=== PATIENT | male | born 1985 | race Caucasian/White ===

== ENCOUNTER 2024-02-03 12:35 | Inpatient (IN) ==
[2024-02-03 13:14] LABS: Calcium 8.4 mg/dl (8.6-10.3); Creatinine Clr Calc Pharmacy 180.8 ml/min; Est GFR (African American) 142.9 ml/min; Est GFR (Non-African American) 123.3 ml/min; Potassium 3.6 mmol/L (3.5-5.1)
[2024-02-03] MEDS: SODIUM CHLORIDE 0.9% 1,000 ML IV SCH (13:21)
--- NOTE | 2024-02-03 14:12 | CT Scan Report ---
HEAD CT NONCONTRAST CT DOSE: HISTORY: fall, altered mental status TECHNIQUE: Multiaxial CT images of the head were performed without the use of intravenous contrast. A utomated exposure control was utilized for this study. A dose lowering technique was utilized adheri ng to the principles of ALARA. Comparison: None. Findings: The paranasal sinuses and mastoid air cells are clear. The calvarium and skull base are int act. The ventricles and sulci are within normal limits. There is no mass, hematoma, midline shift, or acute infarct. Right frontal scalp and right facial subcutaneous hemorrhage/contusion. Impression: No acute intracranial abnormality. Right frontal scalp and facial soft tissue injury ACT 112: Negative or not required by law. Electronically signed by: Ruperto Fraga M.D. 02/03/2024 2:10 PM
--- NOTE | 2024-02-03 14:16 | CT Scan Report ---
CERVICAL SPINE CT CT DOSE: 4196.75 mGy.cm HISTORY: fall, altered mental status TECHNIQUE: Multiaxial CT images of the cervical spine were performed and reformatted in the sagittal and coronal plane without the use of contrast. A dose lowering technique was utilized adhering to th e principles of ALARA. COMPARISON: None. FINDINGS: No fractures. No subluxation. Prevertebral soft tissues and the C1-C2 interval are intact. No pneumothorax. Right neck subcutaneous hemorrhage. IMPRESSION: No fractures within the cervical spine. Right neck subcutaneous hemorrhage. ACT 112: Negative or not required by law. Electronically signed by: Ruperto Fraga M.D. 02/03/2024 2:14 PM
--- NOTE | 2024-02-03 14:22 | CT Scan Report ---
MAXILLOFACIAL CT CT DOSE: HISTORY: fall, facial swelling/ecchymosis TECHNIQUE: Multiaxial CT images of the maxillofacial region were performed and reformatted in the cor onal plane without the use of contrast. A dose lowering technique was utilized adhering to the princ iplroberta of DEBOARH. COMPARISON: None. FINDINGS: The visualized cervical spine, skull base, pterygoid plates, nasal bones, lamina papyracea, orbital floors, mandible, and zygomatic arches are intact. No acute fractures identified. The globes and retrobulbar fat are intact. There is right periorbital, facial, and right neck subcutaneous hemo rrhage/contusion. A small amount of hemorrhage partially surrounds the right submandibular gland. Foc al right cheek subcutaneous hematoma on image 310 measuring 3.8 cm. IMPRESSION: 1. No fractures within the maxillofacial region. 2. Right periorbital/facial and right neck subcutaneous hemorrhage/contusion. ACT 112: Negative or not required by law. Electronically signed by: Ruperto Fraga M.D. 02/03/2024 2:19 PM
--- NOTE | 2024-02-03 14:31 | CT Scan Report ---
CT chest diagnostic wo con, CT abd pelvis wo con CT DOSE: HISTORY: fall, etoh TECHNIQUE: Multiaxial CT images of the chest, abdomen, and pelvis were performed without contrast. A dose lowering technique was utilized adhering to the principles of ALARA. COMPARISON: None. FINDINGS: Chest CT: No acute fractures within the chest. No mediastinal hematoma or lymphadenopathy. The heart is normal in size. No pleural or pericardial effusions. Normal caliber thoracic aorta. Mild calcified plaque within the left coronary artery. Normal esophagus. No pneumothorax. The central airways are p atent. No focal lung consolidations. No evidence for pulmonary edema. Abdomen/pelvis CT: No pneumoperitoneum. No pneumatosis. No acute fractures identified. Severe hepatic steatosis. The unenhanced pancreas, spleen, and adrenal glands are unremarkable. There are few punct ate stones within the right kidney. No ureteral stones. No hydronephrosis. Normal caliber abdominal a eldon. No retroperitoneal or pelvic lymphadenopathy. The bladder is unremarkable. No dilated loops of bowel to suggest an obstruction. Mild thickening of the ascending colon with mild pericolonic fat str anding. This suggests a mild nonspecific colitis. Normal appendix. Trace fluid/thickening along the p osterior peritoneal lining/pararenal spaces. IMPRESSION: 1. No acute traumatic process within the chest, abdomen, pelvis. 2. Mild thickening of the ascending colon with pericolonic fat stranding. This is consistent with a n onspecific colitis. Follow-up endoscopy recommended for further evaluation. 3. Severe hepatic steatosis. 4. Right-sided nephrolithiasis. 5. Trace fluid/thickening within the bilateral anterior perirenal spaces. This nonspecific but could be chronic. Follow-up abdomen and pelvis CT in 3-6 months recommended to ensure stability/resolution. ACT 112: Negative or not required by law. Electronically signed by: Ruperto Fraga M.D. 02/03/2024 2:29 PM
[2024-02-03 14:34] LABS: Basophils # (auto) 0.06 K/uL (0.00-0.20); Basophils % (auto) 0.4 %; Eosinophils # (auto) 0.04 K/uL (0.00-0.50); Eosinophils % (auto) 0.3 %; Hematocrit (blood only) 39.6 % (42.0-52.0); Hemoglobin 13.6 g/dl (14.0-18.0); Immature Granulocytes # (auto) 0.27 K/uL (0.01-0.20); Immature Granulocytes % (auto) 1.7 %; Lymphocytes # (auto) 2.26 K/uL (1.20-3.40); Lymphocytes % (auto) 14.5 %; Mean Corpuscular Hemoglobin 31.1 pg (25.0-34.0); Mean Corpuscular Hgb Conc 34.3 g/dL (32.0-36.0); Mean Corpuscular Volume 90.4 fL (80.0-100.0); Mean Platelet Volume 10.7 fL (9.4-12.4); Monocytes # (auto) 1.28 K/uL (0.11-0.59); Monocytes % (auto) 8.2 %; Neutrophils # (auto) 11.71 K/uL (1.40-6.50); Neutrophils % (auto) 74.9 %; Nucleated RBC # (auto) 0.02 K/uL (0.00-0.12); Nucleated RBC % (auto) 0.1 %; Platelet Count 66 K/uL (130-400); Platelet Estimate Decreased (Normal); RDW Coefficient of Variation 13.2 % (11.5-14.5); RDW Standard Deviation 43.5 fL (36.4-46.3); Red Blood Count 4.38 M/uL (4.70-6.10); White Blood Count 15.62 K/ul (4.8-10.8)
[2024-02-03 15:54] LABS: Albumin Level 4.1 gm/dl (3.4-5.0); Bilirubin,Total 5.3 mg/dl (0.2-1.0); Total Protein 7.2 gm/dl (6.0-8.3)
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
[2024-02-03] MEDS: MULTI-VITAMIN INFUSION 10 ML, THIAMINE HCL 100 MG, FOLIC ACID 1 MG in SODIUM CHLORIDE 0... IV ONE (22:01)
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
[2024-02-03 23:55] LABS: INR 1.3 (0.9-1.1); Prothrombin Time 14.1 Seconds (9.0-12.0)
[2024-02-03] MEDS ORDERED: chlordiazePOXIDE ALCOHOL WITHDRAWL 25MG PO STA (23:57)
[2024-02-03] MEDS ORDERED: Ativan IV Alcohol Withdrawal--Active Protocol IV PRN (23:57)
[2024-02-03] MEDS ORDERED: cloNIDine HCL 0.1 MG TAB PO PRN (23:57)
[2024-02-03] MEDS ORDERED: AMPICILLIN SOD/SULBACTAM SOD 3 GM VIAL IV SCH (23:57)
[2024-02-03] MEDS ORDERED: LORazepam 3 MG in SYRINGE 1.5 ML IV PRN (23:57)
[2024-02-03] MEDS ORDERED: NITROGLYCERIN SL 0.4 MG/TAB TAB SL PRN (23:57)
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
[2024-02-04] MEDS: LORazepam 2 MG in SYRINGE 1 ML IV PRN (00:33)
[2024-02-04] MEDS: SODIUM CHLORIDE 0.9% 1,000 ML IV SCH (00:35)
[2024-02-04] MEDS: chlordiazePOXIDE HCl 25 MG CAP PO SCH (00:46)
[2024-02-04 01:01] LABS: Partial Thromboplastin Time 29 Seconds (21-31)
[2024-02-04] MEDS: UNASYN 3000MG / NS q6h IV SCH (01:34)
[2024-02-04 05:49] LABS: Basophils # (auto) 0.03 K/uL (0.00-0.20); Basophils % (auto) 0.3 %; Eosinophils # (auto) 0.01 K/uL (0.00-0.50); Eosinophils % (auto) 0.1 %; Hematocrit (blood only) 33.9 % (42.0-52.0); Hemoglobin 11.7 g/dl (14.0-18.0); Immature Granulocytes # (auto) 0.09 K/uL (0.01-0.20); Immature Granulocytes % (auto) 0.8 %; Lymphocytes # (auto) 2.74 K/uL (1.20-3.40); Mean Corpuscular Hemoglobin 31.5 pg (25.0-34.0); Mean Corpuscular Hgb Conc 34.5 g/dL (32.0-36.0); Mean Corpuscular Volume 91.1 fL (80.0-100.0); Mean Platelet Volume 10.9 fL (9.4-12.4); Monocytes % (auto) 9.1 %; Neutrophils # (auto) 7.11 K/uL (1.40-6.50); Neutrophils % (auto) 64.7 %; Platelet Count 38 K/uL (130-400); RDW Coefficient of Variation 13.2 % (11.5-14.5); Red Blood Count 3.72 M/uL (4.70-6.10); White Blood Count 10.98 K/ul (4.8-10.8)
[2024-02-04] MEDS: ONDANSETRON INJ 2 MG/ML 2 ML VIAL IV PRN (05:51)
[2024-02-04 05:52] LABS: Amphetamines+Metham, Urine Neg (Neg); Barbiturates, Urine Neg (Neg); Benzodiazepine, Urine Neg (Neg); Cocaine, Urine Neg (Neg); MDMA (Ecstacy), Urine Neg (Neg); Marijuana, Urine Neg (Neg); Methadone, Urine Neg (Neg); Opiate, Urine Neg (Neg); Phencyclidine, Urine Neg (Neg)
[2024-02-04 06:04] LABS: Albumin Level 3.4 gm/dl (3.4-5.0); BUN Creatinine Ratio 17.9 (10-20); Bilirubin Direct 3.2 mg/dl (0-0.2); Bilirubin,Total 5.4 mg/dl (0.2-1.0); Calcium 7.6 mg/dl (8.6-10.3); Creatinine Clr Calc Pharmacy 206.7 ml/min; Est GFR (Non-African American) 129.4 ml/min; Magnesium 1.7 mg/dl (1.7-2.4); Potassium 3.3 mmol/L (3.5-5.1); Total Protein 5.9 gm/dl (6.0-8.3)
[2024-02-04] MEDS: THIAMINE HCL 500 MG in SODIUM CHLORIDE 0.9% 50 ML IV SCH (08:36)
--- NOTE | 2024-02-04 08:40 | Ultrasound Report ---
ABDOMINAL ULTRASOUND, RIGHT UPPER QUADRANT HISTORY: elevated lft. COMPARISON: Abdomen and pelvis CT 02/03/2024. FINDINGS: Pancreas: The pancreatic head and tail are obscured by overlying bowel gas. The remaining portions of the pancreas are within normal limits. Liver: The liver is echogenic consistent with fatty change. 20 cm in length. Focal fatty sparing near the elbow fossa. Gallbladder: No gallbladder wall thickening. No gallstones. CBD: 5 mm. Right kidney: No hydronephrosis. IMPRESSION: 1. Hepatomegaly demonstrating fatty change. 2. Normal gallbladder. No gallstones ACT 112: Negative or not required by law. Electronically signed by: Ruperto Fraga M.D. 02/04/2024 8:39 AM
--- NOTE | 2024-02-04 08:45 | Electrocardiogram Report ---
Test Reason : Blood Pressure : / mmHG Vent. Rate : 121 BPM Atrial Rate : 121 BPM P-R Int : 124 ms QRS Dur : 092 ms QT Int : 318 ms P-R-T Axes : 048 023 -21 degrees QTc Int : 451 ms Sinus tachycardia Nonspecific T wave abnormality Abnormal ECG No previous ECGs available Confirmed by Jovanny Marsh ([id number]) on 02/04/2024 8:45:31 AM Referred By: Confirmed By:Alex Marsh
[2024-02-04] MEDS ORDERED: THIAMINE HCL 100 MG in SYRINGE 9 ML IV SCH (09:00)
[2024-02-04 09:43] LABS: Folate (Folic Acid),Ser orPlas 15.54 ng/ml (>5.38)
[2024-02-04] MEDS: LORazepam 1 MG in SYRINGE 0.5 ML IV PRN (09:47)
--- NOTE | 2024-02-04 10:09 | Gastrointestinal Consultation ---
Date of Consultation February 04, 2024 Assessment & Plan (1) Alcoholic intoxication: (2) Alcoholic hepatitis: Pt is a 38 male admitted w ETOH intoxication, ETOH hepatitis ([facility] Discriminant Function score 15) R facial swelling, ecchymosis after a fall. CT abd/pelvis showed signs of hepatic steatosis, R sided colitis. - IVF support - Diet as tolerated - Trend LFTs; monitor coag function, mental status, renal function daily - Strict ETOH cessation - Avoid NSAIDs, no APAP >2g a day - If diarrhea, check stool cx, Cdiff - Upon DC will arrange Hepatology f/u for continued management of hepatic steatosis and etoh hepatitis Supervising Physician Co-Signing Physician Notes I saw and evaluated the patient, the patient is admitted for problems related to alcohol abuse and a recent fall, he did sustain a significant injury to his left face and forehead. The patient's discriminant function index is 15.1 therefore steroid therapy is presently not indicated. Recommendations Low-sodium diet Monitor labs Avoid alcohol consumption Consider ENT evaluation or OMF evaluation for facial trauma History of Present Illness Reason for Consultation: ETOH hepatitis, colitis Requesting Physician: Dr. Bib Amanda Attending Physician: Dr. Ken Moscoso History of Present Illness Pt is a 38 yo male who was brought in after a fall and R facial swelling. Pt w hx of HTN, ETOH abuse. Sister facetimed him and noticed R facial ecchymosis, edema and had police checked on pt. Pt found w multiple liquor bottles and feces on floor, appeared intoxicated thus brought to ED. He has pain on R face. Hasn't been eating but admitted to heavy drinking. He had n/v but no bloody emesis. Denies abd pain. Workup showed hyponatremia, hypokalemia this AM. LFTs: Tbili 5.4, AST 295, ALT 114, Alk phose 172, lipase 235. ETOH level 379. CT abd/pelvis: 1. No acute traumatic process within the chest, abdomen, pelvis. 2. Mild thickening of the ascending colon with pericolonic fat stranding. This is consistent with a nonspecific colitis. Follow-up endoscopy recommended for further evaluation. 3. Severe hepatic steatosis. 4. Right-sided nephrolithiasis. 5. Trace fluid/thickening within the bilateral anterior perirenal spaces. This nonspecific but could be chronic. Follow-up abdomen and pelvis CT in 3-6 months recommended to ensure stability/resolution Allergies Allergy/AdvReac Type Severity Reaction Status Date / Time Unable to Assess Allergy Verified 02/03/24 16:05 Home Medications Medication Instructions Recorded Confirmed Type Unobtainable 02/03/24 02/03/24 History Patient History Medical History Alcoholism Surgical History No pertinent past surgical history Family History Other No pertinent family history Social History Smoking Status: Never smoker Hx Alcohol Use: Yes Alcohol type: hard liquor Hx Substance Use: No Preferred Language: [place] Communication Ability: Effective Hearing Ability: Normal Quality Control Operator Required: No Beliefs That Will Affect Care: None marital status: Single Current Living Situation: Alone Current Living Situation Comment: Lives alone in apartment in [place], [place]. Family resides in [place] current occupational status: employed current occupation: [employer] Other Information That Helps Us Care for You: No Feels Safe at Home: Yes Safety Concerns: Feels Safe At This Time Review of Systems Review of Systems: All systems reviewed & are unremarkable except as noted in HPI & below Physical Exam Constitutional: WD/WN, vitals as above well groomed, cooperative and comfortable Eyes: PERRL, conjunctivae normal, anicteric sclerae ENMT: R sided of face swelling and ecchymotic Respiratory: normal respiratory effort, lungs clear to auscultation Cardiovascular: RRR, no murmur, no edema Gastrointestinal (Abdomen): normal bowel sounds, soft, nontender, no hepatosplenomegaly Skin: no rashes, warm and dry no jaundice Psychiatric: A+Ox3, euthymic affect Lymphatic: no lymphedema Results & Data Vital Signs (Past 12 Hours) Vital Signs Temp Pulse Pulse Pulse Resp BP BP 02/04/24 06:47 142 H 02/04/24 03:31 37.4 C 129 H 20 02/03/24 23:57 02/03/24 23:54 119 H 02/03/24 23:54 37.3 C 122 H 20 173/96 H 02/03/24 23:50 37.3 C 117 H 18 172/96 H 02/03/24 22:40 02/03/24 22:30 16 131/95 02/03/24 22:30 02/03/24 22:20 02/03/24 22:10 BP Pulse Ox Pulse Ox O2 Del Method O2 Del Method 02/04/24 06:47 02/04/24 03:31 138/79 94 Room Air 02/03/24 23:57 94 Room Air 02/03/24 23:54 02/03/24 23:54 96 Room Air 02/03/24 23:50 96 Room Air 02/03/24 22:40 94 02/03/24 22:30 94 02/03/24 22:30 94 02/03/24 22:20 97 02/03/24 22:10 93 (1) Alcoholic intoxication Complication of substance-induced condition: with unspecified complication Qualified Code(s): F10.929 - Alcohol use, unspecified with intoxication, unspecified
[2024-02-04] MEDS: FOLIC ACID 1 MG in SYRINGE 9.8 ML IV SCH (10:52)
[2024-02-04] MEDS: Patient's ALLERGY Info needs ENTERED SCH (10:52)
[2024-02-04] MEDS ORDERED: VANCOMYCIN CONSULT ACTIVE PRN (13:13)
--- NOTE | 2024-02-04 13:23 | Hospitalist Progress Note ---
Date of Service February 04, 2024 Assessment & Plan (1) Alcoholic intoxication: Plan: 38-year-old male with history of alcohol use disorder, hypertension is brought to the ED with multiple falls. Patient was very chatting with her sister who noticed facial bruise; police was sent to check on him. Multiple liquor bottles, blood in feces on the floor. Patient appeared to be intoxicated when brought to the ED. Patient reported fall 4 days ago on the bathroom sink which resulted in the injury. He is admitted to the hospital for further evaluation Alcohol intoxication Alcohol use disorder Alcohol withdrawall Blood alcohol level 379 MG/DL Started on him Librium low-dose protocol, Ativan as needed High-dose IV thiamine for the time being. Plan to switch over to p.o. at discharge Close monitor for alcohol withdrawal Needs counseling Mechanical fall Right-sided facial swelling involving right eye Right cheek subcutaneous hematoma Patient had fall 4 days prior to admission Face CT shows subcutaneous hematoma of 3.8 cm. Slight induration present over the area. Subcutaneous hemorrhage/contusion seen throughout the right periorbital, facial and right neck CT headno acute intracranial pathology Placed on Unasyn and vancomycin empirically. Oral surgery on consult; will appreciate recommendation whether patient will need any drainage for the subcutaneous hematoma. Continue to monitor Thrombocytopenia Platelets 66 Most likely due to use alcohol use disorder Alcohol hepatitis Total bilirubin 5.3, direct bilirubin 3 AST 348, ALT 133, alkaline phos is 208 Liver ultrasound shows fatty liver Discriminant index of 15.1. Steroid treatment indicated. Hypertension States not on medications Will monitor Clonidine as needed for now DVT prophylaxis SCDs Disposition Telemetry Full code Time spent evaluating patient, direct bedside care, chart review, placing orders, interpretation of diagnostic studies, discussion with consultants, patient, and family members, as well as other required patient management activities is 50 minutes Please note the above document was generated using voice recognition software. It may contain grammatical, syntax or spelling errors. Any formal questions or concerns about the content, text or information contained within the body of this dictation should be directly addressed to the provider for clarification Admission and Anticipated Discharge Date Admission Date: February 03, 2024 Subjective Patient seen and examined at bedside. Is alert oriented x 3; not in distress. He reports tremors; no agitation/hallucination. Review of Systems Review of Systems: All systems reviewed & are unremarkable except as noted in Subjective Physical Exam Physical Exam: General- Not in acute distress Head- right side face including right eye dark/bluish color and swollen. Slight induration present on right cheek. Lungs- clear to auscultation no wheezing or crackles. Heart- regular rate and rhythm; no murmur, no gallop. Abdomen- normal bowel sounds, soft, nontender, no distension. Extremities- no pretibial edema, no erythema seen Neuro- alert, oriented ; PERRL, no facial palsy; no dysarthria; moves extremities Skin- ecchymosis and swelling of right side of the face including right eye. Bruise seen on right shoulder. Results & Data Results & Data Vital Signs (Past 12 Hours) Vital Signs Temp Pulse Pulse Resp BP BP Pulse Ox 02/04/24 11:40 36.8 C 121 H 18 137/75 96 02/04/24 07:49 36.9 C 135 H 18 144/74 H 94 02/04/24 06:47 142 H 02/04/24 03:31 37.4 C 129 H 20 138/79 94 O2 Del Method 02/04/24 11:40 Room Air 02/04/24 07:49 Room Air 02/04/24 06:47 02/04/24 03:31 Room Air (1) Alcoholic intoxication Complication of substance-induced condition: with unspecified complication Qualified Code(s): F10.929 - Alcohol use, unspecified with intoxication, unspecified
--- NOTE | 2024-02-04 14:07 | Pharmacy Report ---
Pharmacy PK ABX Note - Date of Service February 04, 2024 - Assessment and Plan Assessment 38 year old M receiving empiric vancomycin and Unasyn for treatment of facial cellulitis s/p fall at home. No culture data obtained. Renal function appears to be stable (unsure of baseline). Day # 1 of antimicrobial therapy. Plan Vancomycin * Loading dose: 2000 mg IV x 1 * Maintenance dose: 1250 mg IV every 8 hours * Regimen is predicted to achieve target AUC/HOLLY of 400-600 mg/L.hr * Will order vancomycin level if therapy continued beyond 48 hours Ampicillin/sulbactam * 3 g IV q6h - no change Pharmacy will continue to follow and will adjust dose/frequency as necessary. Thank you. Pharmacy has transitioned to AUC monitoring for vancomycin. AUC/HOLLY is the preferred PK/PD target and is associated with decreased risk of nephrotoxicity compared to traditional trough targets.
[2024-02-04] MEDS: VANCOMYCIN HCL 2,000 MG in SODIUM CHLORIDE 0.9% 500 ML IV ONE (15:20)
[2024-02-04] MEDS: POTASSIUM CHLORIDE CRTAB 20 MEQ TABCR PO STA (17:31)
[2024-02-04] MEDS: VANCOMYCIN HCL 1,250 MG in SODIUM CHLORIDE 0.9% 250 ML IV SCH (21:18)
[2024-02-05] MEDS: chlordiazePOXIDE HCl 25 MG CAP PO SCH (05:57)
[2024-02-05 07:49] LABS: Albumin Globulin Ratio 1.2 (0.9-2); Albumin Level 3.2 gm/dl (3.4-5.0); BUN Creatinine Ratio 7.7 (10-20); Bilirubin,Total 6.6 mg/dl (0.2-1.0); Calcium 7.6 mg/dl (8.6-10.3); Creatinine Clr Calc Pharmacy 177.5 ml/min; Est GFR (Non-African American) 121.7 ml/min; Globulin 2.7 gm/dl (2.5-4.0); Potassium 2.8 mmol/L (3.5-5.1); Total Protein 5.9 gm/dl (6.0-8.3)
[2024-02-05 07:50] LABS: Basophils # (auto) 0.02 K/uL (0.00-0.20); Basophils % (auto) 0.3 %; Eosinophils # (auto) 0.03 K/uL (0.00-0.50); Eosinophils % (auto) 0.4 %; Hematocrit (blood only) 32.4 % (42.0-52.0); Hemoglobin 11.2 g/dl (14.0-18.0); Immature Granulocytes # (auto) 0.07 K/uL (0.01-0.20); Lymphocytes % (auto) 23.3 %; Mean Corpuscular Hgb Conc 34.6 g/dL (32.0-36.0); Mean Corpuscular Volume 89.8 fL (80.0-100.0); Mean Platelet Volume 10.6 fL (9.4-12.4); Monocytes # (auto) 0.57 K/uL (0.11-0.59); Monocytes % (auto) 8.3 %; Neutrophils # (auto) 4.57 K/uL (1.40-6.50); Neutrophils % (auto) 66.7 %; Platelet Count 28 K/uL (130-400); Platelet Estimate Signific. Decreased (Normal); RBC Morphology Unremarkable; RDW Coefficient of Variation 13.2 % (11.5-14.5); Red Blood Count 3.61 M/uL (4.70-6.10); White Blood Count 6.86 K/ul (4.8-10.8)
[2024-02-05] MEDS: METOPROLOL TARTRATE 25 MG TAB PO SCH (08:13)
[2024-02-05] MEDS: POTASSIUM CHLORIDE CRTAB 20 MEQ TABCR PO SCH (09:47)
[2024-02-05] MEDS: SODIUM CHLORIDE 0.65% NA SOLN 45 ML (OCEAN) SCH (09:50)
[2024-02-05] MEDS: OXYMETAZOLINE 0.05% 30 ML BTL ONE (09:51)
--- NOTE | 2024-02-05 09:52 | Gastroenterology Progress Note ---
Date of Service February 05, 2024 Assessment & Plan (1) Alcoholic intoxication: (2) Alcoholic hepatitis: Plan: Pt is a 38 male admitted w ETOH intoxication, ETOH hepatitis ([facility] Discriminant Function score 15, steroid not indicated) R facial swelling, ecchymosis after a fall. CT abd/pelvis showed signs of hepatic steatosis, R sided colitis. - IVF support - Diet as tolerated - Trend LFTs; monitor coag function, mental status, renal function daily - Strict ETOH cessation - Avoid NSAIDs, no APAP >2g a day - Check stool cx, Cdiff given loose stools - Pls recall GI prn ;Upon DC will arrange Hepatology f/u for continued management of hepatic steatosis and etoh hepatitis Admission and Anticipated Discharge Date Admission Date: February 03, 2024 Supervising Physician Co-Signing Physician Notes I saw and evaluated the patient, his bilirubin did rise slightly over the last 24 hours. I wonder if this is related to reabsorption of the patient's hematoma from the face. Recomendations Haptoglobin / LDH / T Bili and Indirect Subjective Denies abd pain, n/v, nurse reports multiple loose stools wo bloody diarrhea Review of Systems Review of Systems: All systems reviewed & are unremarkable except as noted in HPI & below Physical Exam Constitutional: WD/WN, vitals as above well groomed, cooperative and comfortable Eyes: PERRL, conjunctivae normal, anicteric sclerae ENMT: R facial contusion Respiratory: normal respiratory effort, lungs clear to auscultation Cardiovascular: RRR, no murmur, no edema Gastrointestinal (Abdomen): normal bowel sounds, soft, nontender, no hepatosplenomegaly Skin: no rashes, warm and dry no jaundice Psychiatric: A+Ox3, euthymic affect Lymphatic: no lymphedema Results & Data Vital Signs (Past 12 Hours) Vital Signs Temp Pulse Pulse Resp BP BP Pulse Ox 02/05/24 07:34 37.3 C 120 H 18 169/96 H 94 02/05/24 04:49 136 H 02/05/24 03:17 37.5 C 123 H 19 126/87 94 02/04/24 23:00 36.5 C 139 H 22 150/84 H 93 O2 Del Method 02/05/24 07:34 Room Air 02/05/24 04:49 02/05/24 03:17 Room Air 02/04/24 23:00 Room Air (1) Alcoholic intoxication Complication of substance-induced condition: with unspecified complication Qualified Code(s): F10.929 - Alcohol use, unspecified with intoxication, unspecified
[2024-02-05 10:02] LABS: INR 1.6 (0.9-1.1); Prothrombin Time 17.4 Seconds (9.0-12.0)
[2024-02-05 11:29] LABS: Bilirubin Direct 4.2 mg/dl (0-0.2)
--- NOTE | 2024-02-05 12:17 | Hospitalist Progress Note ---
Date of Service February 05, 2024 Assessment & Plan (1) Alcoholic intoxication: Plan: 38-year-old male with history of alcohol use disorder, hypertension is brought to the ED with multiple falls. Patient was very chatting with her sister who noticed facial bruise; police was sent to check on him. Multiple liquor bottles, blood in feces on the floor. Patient appeared to be intoxicated when brought to the ED. Patient reported fall 4 days ago on the bathroom sink which resulted in the injury. He is admitted to the hospital for further evaluation Alcohol intoxication Alcohol use disorder Alcohol withdrawall Blood alcohol level 379 MG/DL Started on him Librium low-dose protocol, Ativan as needed High-dose IV thiamine for the time being. Plan to switch over to p.o. at discharge Close monitor for alcohol withdrawal Needs counseling Mechanical fall Right-sided facial swelling involving right eye Right cheek subcutaneous hematoma Patient had fall 4 days prior to admission Face CT shows subcutaneous hematoma of 3.8 cm. Slight induration present over the area. Subcutaneous hemorrhage/contusion seen throughout the right periorbital, facial and right neck CT headno acute intracranial pathology Placed on Unasyn and vancomycin empirically. Discussed with oral surgery on February 05, 2024; patient will likely need I&D for the hematoma on his right cheek. However, patient's platelets are 28,000; will order 2 units of platelets today. Tentative plan for I&D for . Additional unit of platelets tomorrow to keep platelets above 50,000. INR elevated to 1.6; 5 mg of IV vitamin K ordered. Thrombocytopenia Platelets 6600 on presentation; down trended to 28,000. Most likely due to use alcohol use disorder Status post 2 units of platelets today. Alcohol hepatitis Elevated total bilirubin, direct bilirubin AST 348, ALT 133, alkaline phos is 208 Liver ultrasound shows fatty liver Discriminant index of 15.1. Steroid treatment not indicated. GI on consult. Sinus tachycardia Likely related with alcohol withdrawal. EKG personally reviewed - sinus tachycardia; Telemetry does not show arrhythmia Echocardiogram obtained EF of 60 to 65%; no significant valvular pathology. Started on metoprolol 25 mg twice daily. It will also help his blood pressure as well. Hypertension States not on medications Started on metoprolol 25 mg twice a day. DVT prophylaxis SCDs due to thrombocytopenia Disposition Continues to be hospitalized for alcohol withdrawal. Patient will likely need I&D for right cheek hematoma in next few days. He is getting platelet transfusions today. Full code Time spent evaluating patient, direct bedside care, chart review, placing orders, interpretation of diagnostic studies, discussion with consultants, patient, and family members, as well as other required patient management activities is 60 minutes Please note the above document was generated using voice recognition software. It may contain grammatical, syntax or spelling errors. Any formal questions or concerns about the content, text or information contained within the body of this dictation should be directly addressed to the provider for clarification Admission and Anticipated Discharge Date Admission Date: February 03, 2024 Subjective Patient seen and examined at bedside. He had epistaxis from his right nares; which resolved with pressure. No other significant events overnight. Review of Systems Review of Systems: All systems reviewed & are unremarkable except as noted in Subjective Physical Exam Physical Exam: General- Not in acute distress Head- right side face including right eye dark/bluish color and swollen. Induration present in right cheek with tenderness. Lungs- clear to auscultation no wheezing or crackles. Heart- regular rate and rhythm; no murmur, no gallop. Abdomen- normal bowel sounds, soft, nontender, no distension. Extremities- no pretibial edema, no erythema seen Neuro- alert, oriented ; PERRL, no facial palsy; no dysarthria; moves extremities Skin- ecchymosis and swelling of right side of the face including right eye. Bruise seen on right shoulder. Results & Data Results & Data Vital Signs (Past 12 Hours) Vital Signs Temp Pulse Pulse Resp BP BP Pulse Ox 02/05/24 11:41 36.9 C 98 H 18 137/94 92 02/05/24 11:26 36.9 C 94 H 18 145/92 H 92 02/05/24 11:09 37.3 C 97 H 18 125/86 94 02/05/24 10:54 37.3 C 97 H 18 125/86 94 02/05/24 10:35 37.3 C 97 H 18 125/86 94 02/05/24 08:55 121 H 02/05/24 07:34 37.3 C 120 H 18 169/96 H 94 02/05/24 04:49 136 H 02/05/24 03:17 37.5 C 123 H 19 126/87 94 O2 Del Method 02/05/24 11:41 02/05/24 11:26 02/05/24 11:09 02/05/24 10:54 02/05/24 10:35 Room Air 02/05/24 08:55 02/05/24 07:34 Room Air 02/05/24 04:49 02/05/24 03:17 Room Air (1) Alcoholic intoxication Complication of substance-induced condition: with unspecified complication Qualified Code(s): F10.929 - Alcohol use, unspecified with intoxication, unspecified
[2024-02-05 12:34] LABS: Cdiff Toxin B Gene (2yr or >) Positive Cdiff Gene (Neg)
[2024-02-05 12:46] LABS: Adenovirus F 40/41 PCR Not Detected (NotDetected); Astrovirus PCR Not Detected (NotDetected); Campylobacter PCR Not Detected (NotDetected); Cryptosporidium PCR Not Detected (NotDetected); Cyclospora cayetanensis PCR Not Detected (NotDetected); Entamoeba histolytica PCR Not Detected (NotDetected); Enteroaggregative E.coli(EAEC) Not Detected (NotDetected); Enteropathogenic E.coli (EPEC) Not Detected (NotDetected); Enterotoxigenic E.coli (ETEC) Not Detected (NotDetected); Giardia lamblia PCR Not Detected (NotDetected); Norovirus GI/GII PCR Not Detected (NotDetected); Plesiomonas shigelloides PCR Not Detected (NotDetected); Rotavirus A PCR Not Detected (NotDetected); Salmonella PCR Not Detected (NotDetected); Sapovirus PCR Not Detected (NotDetected); Shiga-like Toxin E.coli (STEC) Not Detected (NotDetected); Shigella/Enteroinvasive E.coli Not Detected (NotDetected); Vibrio cholerae PCR Not Detected (NotDetected); Vibrio species PCR Not Detected (NotDetected); Yersinia enterocolitica PCR Not Detected (NotDetected)
[2024-02-05 13:24] LABS: Cdiff Antigen Positive
[2024-02-05 13:25] LABS: Cdiff Toxin A+B Positive Cdiff Toxin (Negative)
[2024-02-05] MEDS: PHYTONADIONE 5 MG in DEXTROSE 5% 50 ML IV ONE (14:29)
--- NOTE | 2024-02-05 15:03 | Electrocardiogram Report ---
Test Reason : Blood Pressure : / mmHG Vent. Rate : 119 BPM Atrial Rate : 119 BPM P-R Int : 118 ms QRS Dur : 092 ms QT Int : 378 ms P-R-T Axes : 037 019 008 degrees QTc Int : 531 ms Sinus tachycardia Prolonged QT Abnormal ECG When compared with ECG of 03-FEB-2024 12:51, Nonspecific T wave abnormality no longer evident in Anterolateral leads Confirmed by Jovanny Marsh ([id number] on 02/05/2024 3:03:11 PM Referred By: REFERRED SELF Confirmed By:Alex Marsh
[2024-02-05] MEDS: CHERRY SYRUP 5 ML UDP PO SCH (15:17)
[2024-02-05] MEDS: VANCOMYCIN HCL 125 MG/2.5ML SOLN PO SCH (15:17)
--- NOTE | 2024-02-05 16:40 | Oral/Maxillofacial Consult ---
Date of Consultation February 04, 2024 Assessment & Plan (1) Traumatic hematoma of face: (2) Ecchymosis of buccal mucosa: (3) Periorbital ecchymosis: (4) Alcoholic hepatitis: (5) Alcoholic intoxication: History of Present Illness Reason for Consultation: hematoma of the right cheek Attending Physician: Bib Amanda MD History of Present Illness Assessment & Plan (1) Alcoholic intoxication: Plan: 38-year-old male with history of alcohol use disorder, hypertension is brought to the ED with multiple falls. Patient was face timing with her sister who noticed facial bruise; police was sent to check on him. Multiple liquor bottles, blood in feces on the floor. Patient appeared to be intoxicated when brought to the ED. Patient reported fall 4 days ago on the bathroom sink which resulted in the injury. He is admitted to the hospital for further evaluation I was asked to evaluate Sandeep. I reviewed the CT scan and noted a 4 cm hematoma of the right cheek and periorbital area as well as the right shoulder. Eventually this will need drained but first the palates and coagulation values will need to be normalized. Intraoral the hematoma is firm and I&D will be done from the intra oral route. There were no facial bone fractures noted. His sister was on face time and I discussed management with her. There was a good understanding that in a few days I will need to evacuate the hematoma with GA in the OR. I will follow and we can plan the I&D once his Platelets and Coagulation numbers are near a more normal level for intervention. Alcohol intoxication Alcohol use disorder Alcohol withdrawall Blood alcohol level 379 MG/DL Started on him Librium low-dose protocol, Ativan as needed High-dose IV thiamine for the time being. Plan to switch over to p.o. at discharge Close monitor for alcohol withdrawal Needs counseling Mechanical fall Right-sided facial swelling involving right eye Right cheek subcutaneous hematoma Patient had fall 4 days prior to admission Face CT shows subcutaneous hematoma of 3.8 cm. Slight induration present over the area. Subcutaneous hemorrhage/contusion seen throughout the right periorbital, facial and right neck CT headno acute intracranial pathology Placed on Unasyn and vancomycin empirically. Discussed with oral surgery on February 05, 2024; patient will likely need I&D for the hematoma on his right cheek. However, patient's platelets are 28,000; will order 2 units of platelets today. Tentative plan for I&D for . Additional unit of platelets tomorrow to keep platelets above 50,000. INR elevated to 1.6; 5 mg of IV vitamin K ordered. Thrombocytopenia Platelets 6600 on presentation; down trended to 28,000. Most likely due to use alcohol use disorder Status post 2 units of platelets today. Alcohol hepatitis Elevated total bilirubin, direct bilirubin AST 348, ALT 133, alkaline phos is 208 Liver ultrasound shows fatty liver Discriminant index of 15.1. Steroid treatment not indicated. GI on consult. Sinus tachycardia Likely related with alcohol withdrawal. EKG personally reviewed - sinus tachycardia; Telemetry does not show arrhythmia Echocardiogram obtained EF of 60 to 65%; no significant valvular pathology. Started on metoprolol 25 mg twice daily. It will also help his blood pressure as well. Hypertension States not on medications Started on metoprolol 25 mg twice a day. DVT prophylaxis SCDs due to thrombocytopenia Disposition Continues to be hospitalized for alcohol withdrawal. Patient will likely need I&D for right cheek hematoma in next few days. He is getting platelet transfusions today. Full code Review of Systems Review of Systems: All systems reviewed & are unremarkable except as noted in Subjective Physical Exam Physical Exam: General- Not in acute distress Head- right side face including right eye dark/bluish color and swollen. Induration present in right cheek with tenderness. Lungs- clear to auscultation no wheezing or crackles. Heart- regular rate and rhythm; no murmur, no gallop. Abdomen- normal bowel sounds, soft, nontender, no distension. Extremities- no pretibial edema, no erythema seen Neuro- alert, oriented ; PERRL, no facial palsy; no dysarthria; moves extremities Skin- ecchymosis and swelling of right side of the face including right eye. Bruise seen on right shoulder. Allergies Allergy/AdvReac Type Severity Reaction Status Date / Time No Known Allergies Allergy Unverified 02/04/24 10:16 Home Medications Medication Instructions Recorded Confirmed Type Unobtainable 02/03/24 02/03/24 History Patient History Medical History Alcoholism Surgical History No pertinent past surgical history Family History Other No pertinent family history Social History Smoking Status: Never smoker Hx Alcohol Use: Yes Alcohol type: hard liquor Hx Substance Use: No Preferred Language: Danish Communication Ability: Effective Hearing Ability: Normal Assorter Laundry Required: No Beliefs That Will Affect Care: None marital status: Single Current Living Situation: Alone Current Living Situation Comment: Lives alone in apartment in [place], [place]. Family resides in [place] current occupational status: employed current occupation: [employer] Other Information That Helps Us Care for You: No Feels Safe at Home: Yes Safety Concerns: Feels Safe At This Time Assistive Devices: None Results & Data Vital Signs (Past 12 Hours) Vital Signs Temp Pulse Pulse Resp BP BP Pulse Ox 02/05/24 15:12 37 C 97 H 18 133/86 94 02/05/24 15:09 37 C 97 H 18 133/86 94 02/05/24 14:17 37 C 105 H 18 145/103 H 94 02/05/24 13:47 37.1 C 102 H 18 155/107 H 94 02/05/24 13:32 37.1 C 100 H 18 154/110 H 94 02/05/24 13:17 37 C 106 H 18 145/90 H 92 02/05/24 12:59 37 C 106 H 18 145/90 H 92 02/05/24 12:11 36.9 C 100 H 18 142/95 H 92 02/05/24 11:41 36.9 C 98 H 18 137/94 92 02/05/24 11:26 36.9 C 94 H 18 145/92 H 92 02/05/24 11:09 37.3 C 97 H 18 125/86 94 02/05/24 10:54 37.3 C 97 H 18 125/86 94 02/05/24 10:35 37.3 C 97 H 18 125/86 94 02/05/24 08:55 121 H 02/05/24 07:34 37.3 C 120 H 18 169/96 H 94 02/05/24 04:49 136 H O2 Del Method 02/05/24 15:12 02/05/24 15:09 02/05/24 14:17 02/05/24 13:47 02/05/24 13:32 02/05/24 13:17 02/05/24 12:59 02/05/24 12:11 02/05/24 11:41 02/05/24 11:26 02/05/24 11:09 02/05/24 10:54 02/05/24 10:35 Room Air 02/05/24 08:55 02/05/24 07:34 Room Air 02/05/24 04:49 PG Care Time/CCT Total # of Minutes Spent Total Time Spent with Patient: Total time spent is greater than 50% in coordination of care (as documented) at patient's floor/unit and/or counseling patient: Coding Level of Care Code 62024 IN/OBS CONSULT LVL 2,35M Diagnoses Traumatic hematoma of face, sequela S00.83XS Encounter type: sequela Ecchymosis of buccal mucosa K13.79 Periorbital ecchymosis of right eye, sequela S00.11XS Encounter type: sequela Laterality: right Alcoholic hepatitis without ascites K70.10 Ascites presence: without ascites Alcoholic intoxication F10.929 Complication of substance-induced condition: with unspecified complication (1) Traumatic hematoma of face Encounter type: sequela Qualified Code(s): S00.83XS - Contusion of other part of head, sequela (3) Periorbital ecchymosis Encounter type: sequela Laterality: right Qualified Code(s): S00.11XS - Contusion of right eyelid and periocular area, sequela (4) Alcoholic hepatitis Ascites presence: without ascites Qualified Code(s): K70.10 - Alcoholic hepatitis without ascites (5) Alcoholic intoxication Complication of substance-induced condition: with unspecified complication Qualified Code(s): F10.929 - Alcohol use, unspecified with intoxication, unspecified
[2024-02-06 07:09] LABS: Basophils # (auto) 0.04 K/uL (0.00-0.20); Basophils % (auto) 0.5 %; Eosinophils # (auto) 0.14 K/uL (0.00-0.50); Eosinophils % (auto) 1.7 %; Hematocrit (blood only) 36.2 % (42.0-52.0); Hemoglobin 12.3 g/dl (14.0-18.0); Immature Granulocytes # (auto) 0.07 K/uL (0.01-0.20); Immature Granulocytes % (auto) 0.9 %; Lymphocytes # (auto) 1.87 K/uL (1.20-3.40); Lymphocytes % (auto) 23.1 %; Mean Corpuscular Hemoglobin 31.2 pg (25.0-34.0); Mean Corpuscular Volume 91.9 fL (80.0-100.0); Mean Platelet Volume 11.6 fL (9.4-12.4); Monocytes % (auto) 6.2 %; Neutrophils # (auto) 5.49 K/uL (1.40-6.50); Neutrophils % (auto) 67.6 %; Platelet Count 41 K/uL (130-400); RDW Coefficient of Variation 13.6 % (11.5-14.5); RDW Standard Deviation 45.5 fL (36.4-46.3); Red Blood Count 3.94 M/uL (4.70-6.10); White Blood Count 8.11 K/ul (4.8-10.8)
[2024-02-06 08:20] LABS: Albumin Globulin Ratio 1.1 (0.9-2); Albumin Level 3.3 gm/dl (3.4-5.0); BUN Creatinine Ratio 4.5 (10-20); Bilirubin,Total 8.5 mg/dl (0.2-1.0); Calcium 7.8 mg/dl (8.6-10.3); Creatinine Clr Calc Pharmacy 172.8 ml/min; Est GFR (African American) 139.3 ml/min; Est GFR (Non-African American) 120.2 ml/min; Globulin 2.9 gm/dl (2.5-4.0); Potassium 2.6 mmol/L (3.5-5.1); Total Protein 6.2 gm/dl (6.0-8.3)
--- NOTE | 2024-02-06 08:23 | Gastroenterology Progress Note ---
Date of Service February 06, 2024 Assessment & Plan (1) Alcoholic intoxication: (2) Alcoholic hepatitis: Plan: Pt is a 38 male admitted w ETOH intoxication, ETOH hepatitis (Maddrey Discriminant Function score 15, steroid not indicated) R facial swelling, ecchymosis after a fall. CT abd/pelvis showed signs of hepatic steatosis, R sided colitis. He is Cdiff positive - F/U CMP - IVF support - Diet as tolerated - Vancomycin 125mg QID x 14 days - Trend LFTs; monitor coag function, mental status, renal function daily - Strict ETOH cessation - Avoid NSAIDs, no APAP >2g a day - Pls recall GI prn ;Upon DC will arrange Hepatology f/u for continued management of hepatic steatosis and etoh hepatitis Admission and Anticipated Discharge Date Admission Date: February 03, 2024 Supervising Physician Co-Signing Physician Notes Saw and evaluated the patient, does not appear to have evidence of C. difficile on a recent stool study therefore we would recommend a course of vancomycin. The patient's AST and ALT are improving however his bilirubin has continued to rise slightly, I suspect this is as a result of reabsorption of the large hematoma that is in his right face. Recommendations Vancomycin as noted above Subjective Pt is Cdiff +, on Vancomycin. Denies abd pain, n/v. Review of Systems Review of Systems: All systems reviewed & are unremarkable except as noted in HPI & below Physical Exam Constitutional: WD/WN, vitals as above well groomed, cooperative and comfortable Eyes: PERRL, conjunctivae normal, anicteric sclerae ENMT: R face swelling and ecchymotic Respiratory: normal respiratory effort, lungs clear to auscultation Cardiovascular: RRR, no murmur, no edema Gastrointestinal (Abdomen): normal bowel sounds, soft, nontender, no hepatosplenomegaly Skin: no rashes, warm and dry no jaundice Psychiatric: A+Ox3, euthymic affect Lymphatic: no lymphedema Results & Data Vital Signs (Past 12 Hours) Vital Signs Temp Pulse Pulse Resp BP Pulse Ox O2 Del Method 02/06/24 07:33 36.7 C 97 H 20 114/78 95 Room Air 02/06/24 02:00 37.4 C 92 H 20 121/80 97 Room Air 02/05/24 22:06 37.4 C 95 H 20 119/83 94 Room Air 02/05/24 21:55 100 H (1) Alcoholic intoxication Complication of substance-induced condition: with unspecified complication Qualified Code(s): F10.929 - Alcohol use, unspecified with intoxication, unspecified (2) Alcoholic hepatitis Ascites presence: without ascites Qualified Code(s): K70.10 - Alcoholic hepatitis without ascites
[2024-02-06] MEDS: SODIUM CHLORIDE 0.9% 500 ML IV SCH (09:38)
[2024-02-06] MEDS: POTASSIUM CHLORIDE / WTR 10 MEQ/100 ML PLCT IV SCH (09:39)
[2024-02-06] MEDS: POTASSIUM CHLORIDE CRTAB 20 MEQ TABCR PO SCH (09:39)
[2024-02-06] MEDS: ADVANCED PROBIOTIC 625 MG CAPSULE PO SCH (09:45)
[2024-02-06] MEDS: VANCOMYCIN LEVEL ONE (12:31)
--- NOTE | 2024-02-06 14:03 | Pharmacy Report ---
Pharmacy PK ABX Note - Date of Service February 06, 2024 - Assessment and Plan Assessment 38 year old M receiving empiric vancomycin and Unasyn for treatment of facial cellulitis s/p fall at home. Antibiotic duration extended to 7 days by provider. Blood cultures x 2 (02/04/24) show no growth at 24 hours. Renal function stable. Per oromaxillofacial surgery consult, patient will require I&D of hematoma. Day # 3 of antimicrobial therapy. Plan Vancomycin * Current regimen: 1250 mg IV every 8 hours * Trough level obtained 02/06/24 resulted as 12.9 mcg/mL. This is predicted to achieve target AUC/HOLLY of 400-600 mg/L.hr * Predicted AUC at steady state: 481 mg/L.hr * Continue 1250 mg IV every 8 hours * Will repeat level in the next 48-72 hours if therapy is continued and/or change in patient clinical status Ampicillin/sulbactam * 3 g IV q6h - no change Pharmacy will continue to follow and will adjust dose/frequency as necessary. Thank you. Pharmacy has transitioned to AUC monitoring for vancomycin. AUC/HOLLY is the preferred PK/PD target and is associated with decreased risk of nephrotoxicity compared to traditional trough targets.
--- NOTE | 2024-02-06 14:55 | Hospitalist Progress Note ---
Date of Service February 06, 2024 Assessment & Plan (1) Alcoholic intoxication: Plan: 38-year-old male with history of alcohol use disorder, hypertension is brought to the ED with multiple falls. Patient was very chatting with her sister who noticed facial bruise; police was sent to check on him. Multiple liquor bottles, blood and feces on the floor. Patient appeared to be intoxicated when brought to the ED. Patient reported fall 4 days ago on the bathroom sink which resulted in the injury. He is admitted to the hospital for further evaluation Alcohol intoxication Alcohol use disorder Alcohol withdrawal --Blood alcohol level 379 MG/DL Continue Librium protocol Continue thiamine, folic acid Currently no signs of acute withdrawal Mechanical fall Right-sided facial swelling involving right eye Right cheek subcutaneous hematoma Suspected infection of subcutaneous hematoma H/O fall 4 days prior to admission --Face CT:No fractures within the maxillofacial region. Right periorbital/facial and right neck subcutaneous hemorrhage/contusion. --CT headNo acute intracranial abnormality. Right frontal scalp and facial soft tissue injury --Blood cultures negative to date -- Empirically on Unasyn and vancomycin --Appreciate behavioral psychologist Input Will need I&D likely on Plan to keep platelets above 50,000, INR less than 1.5 Monitor platelets, INR pain control Thrombocytopenia Likely due to alcohol use S/P 2 units of platelet transfusion Platelet count 41 K today Plan to transfuse 1 unit platelets today Monitor Alcohol hepatitis Elevated total bilirubin, direct bilirubin AST 348, ALT 133, alkaline phos is 208 Liver ultrasound shows fatty liver Discriminant index of 15.1. Steroid treatment not indicated. Appreciate GI input Avoid hepatotoxic agents as able C. difficile colitis Continue p.o. vancomycin Monitor volume status IV fluids as needed Hypokalemia Likely due to GI losses Continue potassium supplements Monitor Sinus tachycardia Likely related with alcohol withdrawal. --Echocardiogram obtained EF of 60 to 65%; no significant valvular pathology. Continue metoprolol 25 mg twice daily Hypertension Not on medications Continue metoprolol DVT prophylaxis SCDs due to thrombocytopenia Code Status Full code Admission and Anticipated Discharge Date Admission Date: February 03, 2024 Subjective Patient is seen and examined at bedside Reports diarrhea, multiple throughout the day Nausea resolved Admits to have some right facial pain Denies any chest pain, dyspnea No other complaints Review of Systems Review of Systems: All systems reviewed & are unremarkable except as noted in Subjective Physical Exam Physical Exam: Physical Exam: Vitals signs as noted above General Appearance:Moderately built and nourished, no apparent distress Head: normocephalic, traumatic, +R facial swelling, ecchymosis, mildly tender, bruise Eyes: normal inspection, EOMI Neck: supple, Trachea midline Respiratory/Chest: Decreased breath sounds, CTA, No accessory muscle use Cardiovascular: S1, S2, No murmur Abdomen/GI:Soft, Non tender, Bowel sounds present Extremities/Musculoskeletal:normal inspection, no edema Neurologic/Psych:AAOX3, grossly no focal neurological deficits Skin: normal color, warm Results & Data Results & Data Vital Signs (Past 12 Hours) Vital Signs Temp Pulse Pulse Resp BP BP Pulse Ox 02/06/24 14:25 36.9 C 103 H 16 119/76 97 02/06/24 13:25 36.8 C 91 H 18 116/77 98 02/06/24 12:55 36.8 C 94 H 20 128/87 96 02/06/24 12:40 37.0 C 91 H 20 121/81 96 02/06/24 12:24 36.3 C L 91 H 20 107/73 94 02/06/24 11:20 37.3 C 94 H 18 105/70 96 02/06/24 08:00 105 H 02/06/24 07:33 36.7 C 97 H 20 114/78 95 O2 Del Method 02/06/24 14:25 02/06/24 13:25 02/06/24 12:55 02/06/24 12:40 02/06/24 12:24 02/06/24 11:20 Room Air 02/06/24 08:00 02/06/24 07:33 Room Air Laboratory Results Short CBC 02/06/24 Range/Units 06:27 WBC 8.11 (4.8-10.8) K/ul Hgb 12.3 L (14.0-18.0) g/dl Hct 36.2 L (42.0-52.0) % Plt Count 41 L (130-400) K/uL BMP 02/06/24 06:27 Sodium 138 Potassium 2.6 L Chloride 102 Carbon Dioxide 28 BUN 3 L Creatinine 0.67 Glucose 124 H Calcium 7.8 L Liver Function 02/06/24 Range/Units 06:27 Total Bilirubin 8.5 H (0.2-1.0) mg/dl AST 258 H (13-39) U/L ALT 101 H (7-52) U/L Alkaline Phosphatase 187 H (34-104) U/L Albumin 3.3 L (3.4-5.0) gm/dl (1) Alcoholic intoxication Complication of substance-induced condition: with unspecified complication Qualified Code(s): F10.929 - Alcohol use, unspecified with intoxication, unspecified
[2024-02-06] MEDS ORDERED: THIAMINE HCL 100 MG TAB PO SCH (16:00)
[2024-02-06] MEDS: traMADol HCL 50 MG TABLET PO PRN (16:35)
[2024-02-06] MEDS: THIAMINE HCL 100 MG TAB PO SCH (16:37)
--- NOTE | 2024-02-06 21:35 | Oral/Maxillofacial Progress Nt ---
Date of Service February 06, 2024 Today the PLT are 41,000 The plan is to give another unit and see if the Plts are high enough to do the I&D of the hematoma. I will keep him NPO tonight just in case we are are to do the procedure February 06 in the afternoon. We can make the decision before noon. If not ready tomorrow we can do the I&D Sunday, Sunday or Sunday. Assessment & Plan Admission and Anticipated Discharge Date Admission Date: February 03, 2024 Subjective Platles are now 41,000 Results & Data Vital Signs (Past 12 Hours) Vital Signs Temp Pulse Pulse Resp BP BP Pulse Ox 02/06/24 19:57 37.1 C 102 H 18 122/79 96 02/06/24 15:28 36.7 C 101 H 19 110/65 95 02/06/24 15:15 101 H 02/06/24 15:15 36.8 C 100 H 20 117/90 95 02/06/24 14:25 36.9 C 103 H 16 119/76 97 02/06/24 13:25 36.8 C 91 H 18 116/77 98 02/06/24 12:55 36.8 C 94 H 20 128/87 96 02/06/24 12:40 37.0 C 91 H 20 121/81 96 02/06/24 12:24 36.3 C L 91 H 20 107/73 94 02/06/24 11:20 37.3 C 94 H 18 105/70 96 O2 Del Method 02/06/24 19:57 Room Air 02/06/24 15:28 Room Air 02/06/24 15:15 02/06/24 15:15 02/06/24 14:25 02/06/24 13:25 02/06/24 12:55 02/06/24 12:40 02/06/24 12:24 02/06/24 11:20 Room Air PG Care Time/CCT Total # of Minutes Spent Total Time Spent with Patient: Total time spent is greater than 50% in coordination of care (as documented) at patient's floor/unit and/or counseling patient: Coding Level of Care Code None
[2024-02-07 06:41] LABS: Basophils # (auto) 0.03 K/uL (0.00-0.20); Basophils % (auto) 0.4 %; Eosinophils # (auto) 0.21 K/uL (0.00-0.50); Eosinophils % (auto) 2.7 %; Hematocrit (blood only) 32.8 % (42.0-52.0); Hemoglobin 11.2 g/dl (14.0-18.0); Immature Granulocytes # (auto) 0.06 K/uL (0.01-0.20); Immature Granulocytes % (auto) 0.8 %; Lymphocytes # (auto) 1.79 K/uL (1.20-3.40); Lymphocytes % (auto) 23.1 %; Mean Corpuscular Hemoglobin 31.4 pg (25.0-34.0); Mean Corpuscular Hgb Conc 34.1 g/dL (32.0-36.0); Mean Corpuscular Volume 91.9 fL (80.0-100.0); Mean Platelet Volume 10.2 fL (9.4-12.4); Monocytes # (auto) 0.92 K/uL (0.11-0.59); Monocytes % (auto) 11.9 %; Neutrophils # (auto) 4.73 K/uL (1.40-6.50); Neutrophils % (auto) 61.1 %; Platelet Count 55 K/uL (130-400); RDW Coefficient of Variation 14.4 % (11.5-14.5); RDW Standard Deviation 47.3 fL (36.4-46.3); Red Blood Count 3.57 M/uL (4.70-6.10); White Blood Count 7.74 K/ul (4.8-10.8)
[2024-02-07 06:58] LABS: Alanine Aminotransferase 85 U/L (7-52); Albumin Globulin Ratio 1.2 (0.9-2); Albumin Level 2.9 gm/dl (3.4-5.0); Alkaline Phosphatase 169 U/L (34-104); Anion Gap 8 (3-11); Aspartate Aminotransferase 203 U/L (13-39); BUN Creatinine Ratio 6.1 (10-20); Blood Urea Nitrogen 3 mg/dl (6-23); Calcium 7.6 mg/dl (8.6-10.3); Carbon Dioxide 26 mmol/L (21-32); Chloride 104 mmol/L (98-107); Creatinine Clr Calc Pharmacy 244.7 ml/min; Est GFR (African American) > 150.0 ml/min; Est GFR (Non-African American) 136.7 ml/min; Globulin 2.5 gm/dl (2.5-4.0); Glucose 95 mg/dl (70-99(Fasting)); Magnesium 1.4 mg/dl (1.7-2.4); Sodium 138 mmol/L (136-145); Total Protein 5.4 gm/dl (6.0-8.3)
[2024-02-07 07:04] LABS: INR 1.8 (0.9-1.1)
[2024-02-07] MEDS: PHYTONADIONE 5 MG in DEXTROSE 5% 50 ML IV ONE (08:52)
[2024-02-07] MEDS: FOLIC ACID 1 MG TAB PO SCH (08:53)
[2024-02-07] MEDS: chlordiazePOXIDE HCl 5 MG CAP PO SCH (09:06)
[2024-02-07] MEDS: MAGNESIUM SULFATE / D5W 1 GM/100 ML BAG IV SCH (10:25)
[2024-02-07] MEDS ORDERED: Nursing to Pharmacy Communication SCH ×2 (14:15→18:45)
--- NOTE | 2024-02-07 14:49 | Hospitalist Progress Note ---
Date of Service February 07, 2024 Assessment & Plan (1) Alcoholic intoxication: Plan: 38-year-old male with history of alcohol use disorder, hypertension is brought to the ED with multiple falls. Patient was very chatting with her sister who noticed facial bruise; police was sent to check on him. Multiple liquor bottles, blood and feces on the floor. Patient appeared to be intoxicated when brought to the ED. Patient reported fall 4 days ago on the bathroom sink which resulted in the injury. He is admitted to the hospital for further evaluation Alcohol intoxication Alcohol use disorder Alcohol withdrawal --Blood alcohol level 379 MG/DL Continue thiamine, folic acid Currently no signs of acute withdrawal Will complete Librium protocol today Mechanical fall Right-sided facial swelling involving right eye Right cheek subcutaneous hematoma Suspected infection of subcutaneous hematoma H/O fall 4 days prior to admission --Face CT:No fractures within the maxillofacial region. Right periorbital/facial and right neck subcutaneous hemorrhage/contusion. --CT headNo acute intracranial abnormality. Right frontal scalp and facial soft tissue injury --Blood cultures negative to date -- Empirically on Unasyn and vancomycin --Appreciate behavioral intervention specialist Input Plan for I&D today pain control Will titrate antibiotics based on cultures Thrombocytopenia Likely due to alcohol use S/P 3 units of platelet transfusion Platelet count 55 K today No bleeding issues Monitor Alcohol hepatitis Elevated total bilirubin, direct bilirubin AST 348, ALT 133, alkaline phos is 208 Liver ultrasound shows fatty liver Discriminant index of 15.1. Steroid treatment not indicated. Appreciate GI input Avoid hepatotoxic agents as able C. difficile colitis Continue p.o. vancomycin Monitor volume status IV fluids as needed Hypokalemia Likely due to GI losses Continue potassium supplements Monitor Sinus tachycardia Likely related with alcohol withdrawal. --Echocardiogram obtained EF of 60 to 65%; no significant valvular pathology. Continue metoprolol 25 mg twice daily Hypertension Not on medications Continue metoprolol DVT prophylaxis SCDs due to thrombocytopenia Code Status Full code Admission and Anticipated Discharge Date Admission Date: February 03, 2024 Subjective Patient is seen and examined at bedside Plan for I&D today No significant diarrhea today per patient Offers no new complaints Right facial pain is controlled Denies any chest pain, dyspnea, nausea, vomiting, abdominal pain Review of Systems Review of Systems: All systems reviewed & are unremarkable except as noted in Subjective Physical Exam Physical Exam: Physical Exam: Vitals signs as noted above General Appearance:Moderately built and nourished, no apparent distress Head: normocephalic, traumatic, +R facial swelling, ecchymosis, mildly tender, bruise Eyes: normal inspection, EOMI Neck: supple, Trachea midline Respiratory/Chest: Decreased breath sounds, CTA, No accessory muscle use Cardiovascular: S1, S2, No murmur Abdomen/GI:Soft, Non tender, Bowel sounds present Extremities/Musculoskeletal:normal inspection, no edema Neurologic/Psych:AAOX3, grossly no focal neurological deficits Skin: normal color, warm Results & Data Results & Data Vital Signs (Past 12 Hours) Vital Signs Temp Pulse Pulse Pulse Resp BP Pulse Ox 02/07/24 11:05 36.7 C 86 18 106/72 95 02/07/24 09:05 94 H 118/74 02/07/24 07:55 36.8 C 93 H 17 116/75 96 02/07/24 07:52 96 H 02/07/24 03:00 36.8 C 93 H 18 115/78 94 O2 Del Method 02/07/24 11:05 Room Air 02/07/24 09:05 02/07/24 07:55 Room Air 02/07/24 07:52 02/07/24 03:00 Room Air Laboratory Results Short CBC 02/07/24 Range/Units 05:46 WBC 7.74 (4.8-10.8) K/ul Hgb 11.2 L (14.0-18.0) g/dl Hct 32.8 L (42.0-52.0) % Plt Count 55 L (130-400) K/uL BMP 02/07/24 05:46 Sodium 138 Potassium 3.0 L Chloride 104 Carbon Dioxide 26 BUN 3 L Creatinine 0.49 L Glucose 95 Calcium 7.6 L Liver Function 02/07/24 Range/Units 05:46 Total Bilirubin 9.0 H (0.2-1.0) mg/dl AST 203 H (13-39) U/L ALT 85 H (7-52) U/L Alkaline Phosphatase 169 H (34-104) U/L Albumin 2.9 L (3.4-5.0) gm/dl (1) Alcoholic intoxication Complication of substance-induced condition: with unspecified complication Qualified Code(s): F10.929 - Alcohol use, unspecified with intoxication, unspecified
[2024-02-07] MEDS ORDERED: ePHEDrine sulfate 50 MG/ML AMP IV PRN (16:07)
[2024-02-07] MEDS ORDERED: ONDANSETRON INJ 2 MG/ML 2 ML VIAL IV PRN (16:07)
[2024-02-07] MEDS ORDERED: ATROPINE SULFATE 0.1 MG/ML 10ML SYR IV PRN (16:07)
--- NOTE | 2024-02-07 16:07 | Anesthesiology Consultation ---
Date of Service February 07, 2024 Assessment & Plan (1) Encounter for pre-operative examination: Chart Review Chart Review: Acceptable Risk for Surgery and Patient NOT seen in Pre Admission Testing Consults Requested none History Surgery Operation Date: 02/07/24 13:20 Proposed Procedures p Right Cheek Drainage of Hematoma - Aj Lara Aries, DMD Height/Weight Height: 5 ft 11 in Weight: 102.9 kg Allergies Allergy/AdvReac Type Severity Reaction Status Date / Time No Known Allergies Allergy Unverified 02/04/24 10:16 Medications Home Medications Medication Instructions Recorded Confirmed Last Taken Unobtainable 02/03/24 02/03/24 Unknown Active Medications Generic Name Dose Route Start Last Admin Trade Name Freq PRN Reason Stop Dose Admin Harrell Syrup 5 ml 02/05/24 14:00 02/07/24 12:34 Harrell Syrup 5 Ml Udp PO 02/15/24 13:59 5 ml Q6 JENN Administration Chlordiazepoxide HCl 5 mg 02/07/24 10:00 02/07/24 09:06 Chlordiazepoxide Hcl 5 Mg Cap PO 02/07/24 22:01 5 mg Q12H JENN Administration Folic Acid 1 mg 02/07/24 09:00 02/07/24 08:53 Folic Acid 1 Mg Tab PO 03/08/24 08:59 1 mg DAILY JENN Administration Lorazepam 1 mg/ Syringe 1 mls @ 2 mls/min 02/03/24 23:57 02/06/24 03:41 IV 03/04/24 23:56 2 mls/min UD PRN Administration EtOH Withdrawal AWSS Score 6,7 Protocol Lorazepam 2 mg/ Syringe 2 mls @ 2 mls/min 02/03/24 23:57 02/04/24 23:29 IV 03/04/24 23:56 2 mls/min UD PRN Administration EtOH Withdrawal AWSS Score 8,9 Protocol Ampicillin Sodium/Sulbactam 100 mls @ 200 mls/hr 02/04/24 01:00 02/07/24 15:09 Sodium 3,000 mg/ Sodium IV 02/11/24 00:59 Infused Chloride Q6H JENN Infusion Vancomycin HCl 1,250 mg/ 275 mls @ 200 mls/hr 02/04/24 21:00 02/07/24 14:21 Sodium Chloride IV 02/11/24 20:59 Infused Q8H JENN Infusion Lactobacillus Acidophilus 1,250 mg 02/06/24 09:30 02/07/24 08:54 Advanced Probiotic 625 Mg Capsule PO 03/07/24 09:29 1,250 mg DAILY JENN Administration Metoprolol Tartrate 25 mg 02/05/24 09:00 02/07/24 08:55 Metoprolol Tartrate 25 Mg Tab PO 03/06/24 08:59 25 mg BID JENN Administration Ondansetron HCl 4 mg 02/04/24 05:23 02/04/24 16:13 Ondansetron Inj 2 Mg/Ml 2 Ml Vial IV 03/05/24 05:22 4 mg Q6H PRN Administration Nausea And Vomiting Potassium Chloride 40 meq 02/06/24 09:00 02/07/24 08:57 Potassium Chloride Crtab 20 Meq Tabcr PO 03/07/24 08:59 40 meq BID JENN Administration Sodium Chloride 2 sprays 02/05/24 09:30 02/07/24 14:22 Sodium Chloride 0.65% Na Soln 45 Ml ([place]) NA 03/06/24 09:29 2 sprays Q4H JENN Administration Thiamine HCl 100 mg 02/06/24 16:00 02/07/24 08:50 Thiamine Hcl 100 Mg Tab PO 03/07/24 15:59 100 mg Q8H JENN Administration Tramadol HCl 50 mg 02/06/24 09:54 02/07/24 00:21 Tramadol Hcl 50 Mg Tablet PO 03/07/24 09:53 50 mg Q6H PRN Administration Pain Vancomycin HCl 125 mg 02/05/24 14:00 02/07/24 12:35 Vancomycin Hcl 125 Mg/2.5ml Soln PO 02/15/24 13:59 125 mg Q6 JENN Administration NPO Date Last Intake of Fluids: 02/06/24 Time Last Intake of Fluids: 23:00 Date Last Intake of Solids: 02/06/24 Time Last Intake of Solids: 23:00 Past Medical History Medical History Alcoholism Past Family History Family History Other No pertinent family history Past Surgical History Surgical History No pertinent past surgical history Social History Smoking Status: Never smoker Hx Alcohol Use: Yes Alcohol type: hard liquor alcohol intake frequency: 0-2 drinks per day Alcohol Intake Frequency Comment: Drinks (1) liter of Vodka daily Hx Substance Use: No substance use type: does not use Physical Exam Vital Signs Last Vital Signs Temp 98.1 F 02/07/24 15:28 Pulse 94 H 02/07/24 15:28 Resp 18 02/07/24 15:28 BP 117/86 02/07/24 15:28 Pulse Ox 95 02/07/24 15:28 O2 Del Method Room Air 02/07/24 15:28 Testing Laboratory Results 02/07/24 05:46 02/07/24 05:46 PT 19.0 Seconds (9.0-12.0) H 02/07/24 05:46 INR 1.8 (0.9-1.1) H 02/07/24 05:46 APTT 29 Seconds (21-31) 02/04/24 00:21 Blood Type A Negative 02/05/24 09:08 02/04/24 14:26 Aerobic Blood Culture - Preliminary Blood No growth in Aerobic bottle after 48 hours. Anaerobic Blood Culture - Preliminary No growth in Anaerobic bottle after 48 hours. 02/04/24 14:11 Aerobic Blood Culture - Preliminary Blood No growth in Aerobic bottle after 48 hours. Anaerobic Blood Culture - Preliminary No growth in Anaerobic bottle after 48 hours.
--- NOTE | 2024-02-07 16:29 | History & Physical Bridge Note ---
Date of Service February 07, 2024 History & Physical Bridge Note I have examined the patient, reviewed the History & Physical and in the interval since the performance of the History & Physical I have noted the following changes of clinical significance: no changes noted OK for the drainage of the right side hematoma in OR today
[2024-02-07] MEDS ORDERED: fentaNYL citrate PF 100 MCG/2 ML VIAL ONE (16:38)
[2024-02-07] MEDS ORDERED: MIDAZOLAM HCL 1 MG/ML 2ML VIAL ONE (16:38)
[2024-02-07] MEDS ORDERED: LIDOCAINE 2% 2 ML VIAL/AMP(20MG/ML) INFIL ONE (16:45)
[2024-02-07] MEDS ORDERED: PROPOFOL IV EMULSION 10 MG/ML 20 ML VIAL IV ONE (16:45)
[2024-02-07] MEDS ORDERED: SUCCINYLCHOLINE CHLORIDE 20 MG/ML 10 ML VIAL IV ONE (16:45)
[2024-02-07] MEDS ORDERED: ONDANSETRON INJ 2 MG/ML 2 ML VIAL ONE (16:45)
[2024-02-07] MEDS ORDERED: DEXAMETHASONE SOD INJ 4 MG/ML VIAL ONE ×2 (16:45→16:46)
[2024-02-07] MEDS ORDERED: GLYCOPYRROLATE 0.2 MG/ML VIAL ONE (17:13)
[2024-02-07] MEDS: CHLORHEXIDINE GLUCONATE 0.12% 480 ML MT ONE (17:14)
[2024-02-07] MEDS ORDERED: SUGAMMADEX SODIUM 200 MG/2 ML VIAL IV ONE (17:26)
[2024-02-07] MEDS: BUPIVACAINE/EPINEPHRINE 0.5% 1:200,000 1.8 ML CARP ONE (17:34)
--- NOTE | 2024-02-07 17:45 | Post Operative Brief Note ---
PG Immediate Post Op with CF Date of Surgery February 07, 2024 Pre & Post Diagnosis Operation Date: 02/07/24 13:20 Pre-Op Diagnosis: Right cheek hematoma Post-Op Diagnosis: Right cheek hematoma I identified the patient and participated in the time-out.: Yes Procedure Operation Date: 02/07/24 13:20 Actual Procedures p Right Cheek Drainage of Hematoma(Right) - Aj Chris DMD Surgeon Aj Chris, SHIRLEY Computer Technology Trainer none Estimated Blood Loss 5 Findings Consistent with Post-Op Diagnosis Hematoma of the right cheek Specimens Specimen Description: 1. Culture - right cheek hematoma Drains Yesenia Drain Anesthesia Type General Complications none Disposition Accompanied Patient To Recovery: Yes
[2024-02-07] MEDS: fentaNYL citrate PF 100 MCG/2 ML VIAL IV PRN (17:54)
--- NOTE | 2024-02-07 18:23 | Anesthesiology Progress Note ---
Date of Service February 07, 2024 Anesthesia Post Procedure Vital Signs Vital Signs: Temp Pulse Pulse Pulse Resp BP Pulse Ox 02/07/24 18:15 96 H 16 110/77 92 02/07/24 18:05 95 H 16 116/76 93 02/07/24 17:55 96 H 16 110/70 93 02/07/24 17:48 97.0 F L 95 H 18 120/76 96 02/07/24 16:32 83 02/07/24 15:28 98.1 F 94 H 18 117/86 95 02/07/24 11:05 98.1 F 86 18 106/72 95 02/07/24 09:05 94 H 118/74 02/07/24 08:15 02/07/24 07:55 98.2 F 93 H 17 116/75 96 02/07/24 07:52 96 H 02/07/24 03:00 98.2 F 93 H 18 115/78 94 02/06/24 23:24 97.9 F 94 H 17 126/86 95 02/06/24 22:00 97 H 02/06/24 19:57 98.8 F 102 H 18 122/79 96 O2 Del Method O2 Flow Rate 02/07/24 18:15 Room Air 02/07/24 18:05 Oxymask 2 02/07/24 17:55 Oxymask 4 02/07/24 17:48 Oxymask 6 02/07/24 16:32 02/07/24 15:28 Room Air 02/07/24 11:05 Room Air 02/07/24 09:05 02/07/24 08:15 Room Air 02/07/24 07:55 Room Air 02/07/24 07:52 02/07/24 03:00 Room Air 02/06/24 23:24 Room Air 02/06/24 22:00 02/06/24 19:57 Room Air Pain Intensity Right Face: Pain Intensity: 4 Transfer of Care Handoff Completed per policy Notes Mental Status: alert / awake / arousable and participated in evaluation Patient Amnestic to Procedure: Yes Nausea / Vomiting: adequately controlled Pain: adequately controlled Airway Patency, RR, SpO2: stable & adequate BP & HR: stable & adequate Hydration State: stable & adequate Anesthetic Complications: no major complications apparent and Pt Satisfied with anesthetic care
[2024-02-07] MEDS: MAGNESIUM CHLORIDE W/CALCIUM 64MG DELAYED REL TAB PO SCH (20:41)
[2024-02-08] MEDS: OPTIRAY 320 125ml IV ONE (01:51)
[2024-02-08] MEDS: OPTIRAY 350 500ml IV ONE (01:53)
[2024-02-08] MEDS: MAGNESIUM SULFATE / D5W 1 GM/100 ML BAG IV ONE (01:59)
[2024-02-08 02:08] LABS: Basophils # (auto) 0.01 K/uL (0.00-0.20); Basophils % (auto) 0.1 %; Eosinophils # (auto) 0.01 K/uL (0.00-0.50); Eosinophils % (auto) 0.1 %; Hemoglobin 12.4 g/dl (14.0-18.0); Immature Granulocytes # (auto) 0.05 K/uL (0.01-0.20); Immature Granulocytes % (auto) 0.7 %; Lymphocytes # (auto) 0.95 K/uL (1.20-3.40); Lymphocytes % (auto) 12.6 %; Mean Corpuscular Hemoglobin 30.8 pg (25.0-34.0); Mean Corpuscular Hgb Conc 32.6 g/dL (32.0-36.0); Mean Corpuscular Volume 94.5 fL (80.0-100.0); Mean Platelet Volume 10.8 fL (9.4-12.4); Monocytes # (auto) 0.22 K/uL (0.11-0.59); Monocytes % (auto) 2.9 %; Neutrophils % (auto) 83.6 %; Platelet Count 74 K/uL (130-400); RDW Coefficient of Variation 15.9 % (11.5-14.5); RDW Standard Deviation 51.7 fL (36.4-46.3); Red Blood Count 4.02 M/uL (4.70-6.10); White Blood Count 7.54 K/ul (4.8-10.8)
[2024-02-08 02:30] LABS: BUN Creatinine Ratio 9.1 (10-20); Bilirubin,Total 10.9 mg/dl (0.2-1.0); Calcium 7.7 mg/dl (8.6-10.3); Creatinine Clr Calc Pharmacy 181.7 ml/min; Est GFR (African American) 140.2 ml/min; Est GFR (Non-African American) 120.9 ml/min; Globulin 2.9 gm/dl (2.5-4.0); Magnesium 1.8 mg/dl (1.7-2.4); Potassium 4.4 mmol/L (3.5-5.1); Total Protein 5.9 gm/dl (6.0-8.3); Troponin I High Sensitivity 8.6 pg/ml (0-20)
[2024-02-08 02:38] LABS: INR 1.7 (0.9-1.1); Partial Thromboplastin Ratio 1.1; Partial Thromboplastin Time 31 Seconds (21-31); Prothrombin Time 17.6 Seconds (9.0-12.0)
--- NOTE | 2024-02-08 03:42 | CT Scan Report ---
Exam(s): CTA CHEST IV Amt: 108 ML OPTIRAY 320 EXAM: CT Angiography Chest With Intravenous Contrast CLINICAL HISTORY: Reason for exam: cp. TECHNIQUE: Axial computed tomographic angiography images of the chest with intravenous contrast. CTDI is 27.71 mGy and DLP is 784.66 mGy-cm. Automated exposure control was utilized for the study. A dose lowering technique was utilized adhering to the principles of ALARA. MIP reconstructed images were created and reviewed. COMPARISON: No relevant prior studies available. FINDINGS: Pulmonary arteries: Unremarkable. No acute pulmonary embolism. Aorta: No acute findings. No thoracic aortic aneurysm. Lungs: See below. Pleural space: Small right pleural effusion, with subjacent airspace consolidation, concerning for aspiration pneumonia. Small left pleural effusion. Heart: Unremarkable. No cardiomegaly. No significant pericardial effusion. No evidence of RV dysfunction. Bones/joints: No acute fracture. No dislocation. Soft tissues: Unremarkable. Lymph nodes: Unremarkable. No enlarged lymph nodes. Liver: Severe hepatic steatosis. IMPRESSION: 1. No acute pulmonary embolism. 2. Small right pleural effusion, with subjacent airspace consolidation, concerning for aspiration pneumonia. Small left pleural effusion. 3. Severe hepatic steatosis. Electronically signed by: Nir Jane MD 02/08/24 03:41 AM
[2024-02-08] MEDS: SODIUM CHLORIDE 0.9% 1,000 ML IV ONE (04:37)
[2024-02-08 05:04] LABS: Troponin I High Sensitivity 6.7 pg/ml (0-20)
[2024-02-08 05:46] LABS: Influenza A virus by PCR Negative (Neg); Influenza B virus by PCR Negative (Neg); RSV by PCR Negative (Neg); SARS CoV2 RNA(COVID-19) Ceph NEGATIVE (Negative)
[2024-02-08] MEDS: prednisoLONE sod phosphate 15 MG/5 ML PO SCH (09:57)
--- NOTE | 2024-02-08 12:06 | Electrocardiogram Report ---
Test Reason : Blood Pressure : / mmHG Vent. Rate : 099 BPM Atrial Rate : 099 BPM P-R Int : 114 ms QRS Dur : 086 ms QT Int : 380 ms P-R-T Axes : 040 015 009 degrees QTc Int : 487 ms Normal sinus rhythm Prolonged QT Abnormal ECG When compared with ECG of 05-FEB-2024 05:58, No significant change was found Confirmed by Jovanny Marsh ([id number]) on 02/08/2024 12:06:33 PM Referred By: REFERRED SELF Confirmed By:Alex Marsh
[2024-02-08] MEDS: AMOXICILLIN/CLAVULANATE 500 MG TAB PO SCH (16:34)
--- NOTE | 2024-02-08 17:29 | Hospitalist Progress Note ---
Date of Service February 08, 2024 Assessment & Plan (1) Alcoholic intoxication: Plan: 38-year-old male with history of alcohol use disorder, hypertension is brought to the ED with multiple falls. Patient was very chatting with her sister who noticed facial bruise; police was sent to check on him. Multiple liquor bottles, blood and feces on the floor. Patient appeared to be intoxicated when brought to the ED. Patient reported fall 4 days ago on the bathroom sink which resulted in the injury. He is admitted to the hospital for further evaluation Alcohol intoxication Alcohol use disorder Alcohol withdrawal --Blood alcohol level 379 MG/DL Continue thiamine, folic acid Completed Librium protocol Currently no signs of withdrawal Counseled to quit drinking on multiple occasions Mechanical fall Right-sided facial swelling involving right eye Right cheek subcutaneous hematoma Suspected infection of subcutaneous hematoma--less likely H/O fall 4 days prior to admission --Face CT:No fractures within the maxillofacial region. Right periorbital/facial and right neck subcutaneous hemorrhage/contusion. --CT headNo acute intracranial abnormality. Right frontal scalp and facial soft tissue injury --Blood cultures negative to date -- Empirically on Unasyn and vancomycin>> de-escalate to Augmentin --Appreciate behavioral health care manager Input S/P Right Cheek Drainage of Hematoma by Dr. Chris on 02/07/2024 pain control Follow-up final cultures Thrombocytopenia Likely due to alcohol use S/P 3 units of platelet transfusion Platelet count slowly improving No bleeding issues Monitor Alcohol hepatitis Elevated total bilirubin, direct bilirubin Transaminitis Liver ultrasound shows fatty liver Given worsening DF, started on prednisolone Appreciate GI input Avoid hepatotoxic agents as able Will likely need follow-up with GI on discharge C. difficile colitis Continue p.o. vancomycin Monitor volume status IV fluids as needed Hypokalemia Likely due to GI losses Continue potassium supplements Monitor Sinus tachycardia Likely related with alcohol withdrawal. --Echocardiogram obtained EF of 60 to 65%; no significant valvular pathology. Continue metoprolol 25 mg twice daily Hypertension Not on medications Continue metoprolol DVT prophylaxis SCDs due to thrombocytopenia Code Status Full code Admission and Anticipated Discharge Date Admission Date: February 03, 2024 Subjective Patient is seen and examined at bedside Right facial pain is better No diarrhea today Noted worsening liver enzymes Discussed with GI today Denies any chest pain, dyspnea, nausea, vomiting, abdominal pain No other complaints Review of Systems Review of Systems: All systems reviewed & are unremarkable except as noted in Subjective Physical Exam Physical Exam: Physical Exam: Vitals signs as noted above General Appearance:Moderately built and nourished, no apparent distress Head: normocephalic, traumatic, +R facial swelling, ecchymosis, mildly tender, bruise Eyes: normal inspection, EOMI,+Icteric Neck: supple, Trachea midline Respiratory/Chest: Decreased breath sounds, CTA, No accessory muscle use Cardiovascular: S1, S2, No murmur Abdomen/GI:Soft, Non tender, Bowel sounds present Extremities/Musculoskeletal:normal inspection, no edema Neurologic/Psych:AAOX3, grossly no focal neurological deficits Skin: normal color, warm Results & Data Results & Data Vital Signs (Past 12 Hours) Vital Signs Temp Pulse Pulse Resp BP Pulse Ox O2 Del Method 02/08/24 16:19 36.5 C 91 H 19 120/83 95 Room Air 02/08/24 15:48 90 02/08/24 10:49 36.3 C L 106 H 20 123/82 94 Room Air 02/08/24 07:27 36.7 C 97 H 18 109/77 94 Room Air 02/08/24 07:00 94 H Laboratory Results Short CBC 02/08/24 Range/Units 01:28 WBC 7.54 (4.8-10.8) K/ul Hgb 12.4 L (14.0-18.0) g/dl Hct 38.0 L (42.0-52.0) % Plt Count 74 L (130-400) K/uL BMP 02/08/24 01:28 Sodium 135 L Potassium 4.4 D Chloride 104 Carbon Dioxide 24 BUN 6 Creatinine 0.66 Glucose 153 H Calcium 7.7 L Liver Function 02/08/24 Range/Units 01:28 Total Bilirubin 10.9 H (0.2-1.0) mg/dl AST 211 H (13-39) U/L ALT 91 H (7-52) U/L Alkaline Phosphatase 192 H (34-104) U/L Albumin 3.0 L (3.4-5.0) gm/dl (1) Alcoholic intoxication Complication of substance-induced condition: with unspecified complication Qualified Code(s): F10.929 - Alcohol use, unspecified with intoxication, unspecified
[2024-02-08] MEDS: CHERRY SYRUP 5 ML UDP PO SCH (18:26)
[2024-02-08] MEDS: VANCOMYCIN HCL 125 MG/2.5ML SOLN PO SCH (18:27)
--- NOTE | 2024-02-08 18:58 | Oral/Maxillofacial Progress Nt ---
Date of Service February 08, 2024 Assessment & Plan Admission and Anticipated Discharge Date Admission Date: February 03, 2024 Subjective Post Op I&D Hematoma drainage 24 hours The infected Hematoma area is now very well drained and the soft tissue is softer. No recurrent bleeding noted Swelling is almost gone and the tissue is responding well No drainage is noted---The Drain was removed. The hematoma has responded very well to the antibiotics and the I and D. I requested that the patient continue with massage, heat and wound care, Peridex rinses From my point of view he may be discharged once hospital feels he is able to be treated as an outpatient. I gave Sandeep my contact information and requested he call my office to set up follow up on or a few days after February 25. Results & Data Vital Signs (Past 12 Hours) Vital Signs Temp Pulse Pulse Resp BP Pulse Ox O2 Del Method 02/08/24 16:19 36.5 C 91 H 19 120/83 95 Room Air 02/08/24 15:48 90 02/08/24 10:49 36.3 C L 106 H 20 123/82 94 Room Air 02/08/24 07:27 36.7 C 97 H 18 109/77 94 Room Air 02/08/24 07:00 94 H PG Care Time/CCT Total # of Minutes Spent Total Time Spent with Patient: Total time spent is greater than 50% in coordination of care (as documented) at patient's floor/unit and/or counseling patient: Coding Level of Care Code None
[2024-02-08] MEDS ORDERED: CHLORHEXIDINE GLUCONATE 0.12% 480 ML MT PRN (19:03)
[2024-02-09 07:09] LABS: Mean Corpuscular Hemoglobin 31.9 pg (25.0-34.0); Mean Corpuscular Hgb Conc 33.3 g/dL (32.0-36.0); Mean Corpuscular Volume 95.8 fL (80.0-100.0); Mean Platelet Volume 10.6 fL (9.4-12.4); Platelet Count 121 K/uL (130-400); RDW Coefficient of Variation 17.1 % (11.5-14.5); RDW Standard Deviation 55.8 fL (36.4-46.3); Red Blood Count 4.07 M/uL (4.70-6.10); White Blood Count 14.73 K/ul (4.8-10.8)
[2024-02-09 07:34] LABS: Albumin Globulin Ratio 1.1 (0.9-2); BUN Creatinine Ratio 12.3 (10-20); Bilirubin,Total 9.9 mg/dl (0.2-1.0); Calcium 7.9 mg/dl (8.6-10.3); Creatinine Clr Calc Pharmacy 209.9 ml/min; Est GFR (African American) 148.9 ml/min; Est GFR (Non-African American) 128.4 ml/min; Globulin 2.7 gm/dl (2.5-4.0); Potassium 4.2 mmol/L (3.5-5.1); Total Protein 5.7 gm/dl (6.0-8.3)
[2024-02-09] MEDS: THIAMINE HCL 100 MG TAB PO SCH (08:24)
--- NOTE | 2024-02-09 12:00 | Hospitalist Progress Note ---
Date of Service February 09, 2024 Assessment & Plan (1) Alcoholic intoxication: Plan: 38-year-old male with history of alcohol use disorder, hypertension is brought to the ED with multiple falls. Patient was very chatting with her sister who noticed facial bruise; police was sent to check on him. Multiple liquor bottles, blood and feces on the floor. Patient appeared to be intoxicated when brought to the ED. Patient reported fall 4 days ago on the bathroom sink which resulted in the injury. He is admitted to the hospital for further evaluation Alcohol intoxication Alcohol use disorder Alcohol withdrawal --Blood alcohol level 379 MG/DL Continue thiamine, folic acid Completed Librium protocol Currently no signs of withdrawal Counseled to quit drinking on multiple occasions Mechanical fall Right-sided facial swelling involving right eye Right cheek subcutaneous hematoma Suspected infection of subcutaneous hematoma--less likely H/O fall 4 days prior to admission --Face CT:No fractures within the maxillofacial region. Right periorbital/facial and right neck subcutaneous hemorrhage/contusion. --CT headNo acute intracranial abnormality. Right frontal scalp and facial soft tissue injury --Blood cultures negative to date -- Empirically on Unasyn and vancomycin>> de-escalate to Augmentin --Appreciate behavioral pediatrician Input S/P Right Cheek Drainage of Hematoma by Dr. Chris on 02/07/2024 pain control Wound culture growing staph species ? Contaminant Continue Augmentin for now Thrombocytopenia Likely due to alcohol use S/P 3 units of platelet transfusion Platelet count slowly improving No bleeding issues Monitor Alcohol hepatitis Elevated total bilirubin, direct bilirubin Transaminitis Liver ultrasound shows fatty liver Given worsening DF, started on prednisolone Appreciate GI input Avoid hepatotoxic agents as able Advised to follow up with GI/Tool Programmer on discharge LFTs slowly trending down C. difficile colitis Continue p.o. vancomycin Monitor volume status IV fluids as needed Hypokalemia Likely due to GI losses Continue potassium supplements Monitor Sinus tachycardia Likely related with alcohol withdrawal. --Echocardiogram obtained EF of 60 to 65%; no significant valvular pathology. Continue metoprolol 25 mg twice daily Hypertension Not on medications Continue metoprolol DVT prophylaxis SCDs due to thrombocytopenia Code Status Full code Disposition Home Admission and Anticipated Discharge Date Admission Date: February 03, 2024 Subjective Patient is seen and examined at bedside Right facial pain continues to improve No new complaints Liver function test slowly improving Patient prefers to be discharged home today Denies any chest pain, dyspnea, nausea, vomiting, abdominal pain Review of Systems Review of Systems: All systems reviewed & are unremarkable except as noted in Subjective Physical Exam Physical Exam: Physical Exam: Vitals signs as noted above General Appearance:Moderately built and nourished, no apparent distress Head: normocephalic, traumatic, +R facial swelling, ecchymosis, mildly tender, bruise Eyes: normal inspection, EOMI,+Icteric Neck: supple, Trachea midline Respiratory/Chest: Decreased breath sounds, CTA, No accessory muscle use Cardiovascular: S1, S2, No murmur Abdomen/GI:Soft, Non tender, Bowel sounds present Extremities/Musculoskeletal:normal inspection, no edema Neurologic/Psych:AAOX3, grossly no focal neurological deficits Skin: normal color, warm Results & Data Results & Data Vital Signs (Past 12 Hours) Vital Signs Temp Pulse Pulse Resp BP Pulse Ox O2 Del Method 02/09/24 11:23 36.3 C L 87 18 142/89 H 98 Room Air 02/09/24 07:50 86 02/09/24 07:39 36.3 C L 89 18 134/89 97 Room Air 02/09/24 02:36 36.5 C 88 18 117/79 95 Room Air Laboratory Results Short CBC 02/09/24 Range/Units 06:17 WBC 14.73 H (4.8-10.8) K/ul Hgb 13.0 L (14.0-18.0) g/dl Hct 39.0 L (42.0-52.0) % Plt Count 121 L D (130-400) K/uL BMP 02/09/24 06:17 Sodium 135 L Potassium 4.2 Chloride 105 Carbon Dioxide 26 BUN 7 Creatinine 0.57 L Glucose 105 H Calcium 7.9 L Liver Function 02/09/24 Range/Units 06:17 Total Bilirubin 9.9 H (0.2-1.0) mg/dl AST 154 H (13-39) U/L ALT 83 H (7-52) U/L Alkaline Phosphatase 205 H (34-104) U/L Albumin 3.0 L (3.4-5.0) gm/dl (1) Alcoholic intoxication Complication of substance-induced condition: with unspecified complication Qualified Code(s): F10.929 - Alcohol use, unspecified with intoxication, unspecified
--- NOTE | 2024-02-09 12:34 | Discharge Summary ---
Date of Service February 09, 2024 Admission HPI Per Admitting Provider 38-year-old male with ongoing alcoholism states he has hypertension and used to take blood pressure medication but stopped taking since last 2 years and he moved to [facility] from [place] area last summer was brought in because of alcoholism and fall and right facial swelling. Seems he has not shown up at his work at [employer] since January 24. Seems sister FaceTimed and noticed significant facial ecchymosis and edema and she was concerned and asked police to check on him. Seems multiple liquor bottles strewn about his residence and there is blood and feces on the floor and patient appeared intoxicated and was brought to the ED. Patient states he fell several days ago. Seems he fell on the bathroom sink on night striking his face and right shoulder as per ER. He has significant swelling and bruise on the right side of his face and right eye is almost closed because swelling. He also has a bruise on the right shoulder. Complains of headache. Whenever he is able to open his right eye is seeing okay. Has pain in the right side of the face. He states he did not eat for last few days. He states he is drinking heavily but could not quantify. He states drinking for several years. Denies any cough. No sore throat. Says he has some nausea and vomitings but denies any blood in the vomitus. Denies chest pain or shortness of breath. Has some abdominal discomfort. Denies any blood in the stools. Urine is very dark. States he is ambulating okay. Blood pressure okay. He is tachycardic. Saturating okay on room air. Past medical history. Alcoholism. Hypertension as per patient. Past surgical history. States had surgery of the right eye when he was a kid. Social history. Denies smoking. Heavy drinking as per patient. No drug use as per patient. Family history. Father had autoimmune disorder causing kidney failure and on dialysis. Mother had cancer and is in remission as per patient. Admission Exam Per Admitting Provider General- Not in acute distress Head- right side face including right eye dark/bluish color and swollen. Eyes- PERRL. ENT- oropharynx clear Neck- supple, no JVD. Lungs- clear to auscultation no wheezing or crackles. Heart- regular rate and rhythm; no murmur, no gallop. Abdomen- normal bowel sounds, soft, nontender, no distension. Extremities- no pretibial edema, no erythema seen Neuro- alert, oriented ; PERRL, no facial palsy; no dysarthria; moves extremities Skin- ecchymosis and swelling of right side of the face including right eye. Br uise seen on right shoulder. Principal Diagnosis Alcohol use disorder/withdrawal Mechanical fall Right facial hematoma Alcoholic hepatitis Thrombocytopenia C. difficile colitis Discharge Data Allergies Allergy/AdvReac Type Severity Reaction Status Date / Time No Known Allergies Allergy Unverified 02/04/24 10:16 Consultations 02/03/24 20:48 ED Decision to Admit Stat 02/04/24 08:00 Consult Gastroenterology Routine Consult Oromaxillofacial Surgery Routine Procedures Performed Operation Date: 02/07/24 13:20 Actual Procedures p Right Cheek Drainage of Hematoma(Right) - Aj Chris, SHIRLEY Laboratory Results WBC 14.73 K/ul (4.8-10.8) H 02/09/24 06:17 RBC 4.07 M/uL (4.70-6.10) L 02/09/24 06:17 Hgb 13.0 g/dl (14.0-18.0) L 02/09/24 06:17 Hct 39.0 % (42.0-52.0) L 02/09/24 06:17 MCV 95.8 fL (80.0-100.0) 02/09/24 06:17 MCH 31.9 pg (25.0-34.0) 02/09/24 06:17 MCHC 33.3 g/dL (32.0-36.0) 02/09/24 06:17 RDW Std Deviation 55.8 fL (36.4-46.3) H 02/09/24 06:17 RDW Coeff of Shani 17.1 % (11.5-14.5) H 02/09/24 06:17 Plt Count 121 K/uL (130-400) L D 02/09/24 06:17 MPV 10.6 fL (9.4-12.4) 02/09/24 06:17 Immature Gran % (Auto) 0.7 % 02/08/24 01:28 Neut % (Auto) 83.6 % 02/08/24 01:28 Lymph % (Auto) 12.6 % 02/08/24 01:28 [place] % (Auto) 2.9 % 02/08/24 01:28 Eos % (Auto) 0.1 % 02/08/24 01:28 Baso % (Auto) 0.1 % 02/08/24 01:28 Neut # (Auto) 6.30 K/uL (1.40-6.50) 02/08/24 01:28 Lymph # (Auto) 0.95 K/uL (1.20-3.40) L 02/08/24 01:28 [place] # (Auto) 0.22 K/uL (0.11-0.59) 02/08/24 01:28 Eos # (Auto) 0.01 K/uL (0.00-0.50) 02/08/24 01: Baso # (Auto) 0.01 K/uL (0.00-0.20) 02/08/24 01: Immature Gran # (Auto) 0.05 K/uL (0.01-0.20) 02/08/24 01:28 Absolute Nucleated RBC 0.02 K/uL (0.00-0.12) 02/03/24 12:45 Nucleated RBC % (auto) 0.1 % 02/03/24 12:45 Platelet Estimate Signific. Decreased (Normal) L 02/05/24 06:16 RBC Morphology Unremarkable 02/05/24 06:16 Haptoglobin 42 mg/dL (43-212) L 02/05/24 10:48 PT 17.6 Seconds (9.0-12.0) H 02/08/24 01:28 INR 1.7 (0.9-1.1) H 02/08/24 01:28 APTT 31 Seconds (21-31) 02/08/24 01:28 PTT Ratio 1.1 02/08/24 01:28 Sodium 135 mmol/L (136-145) L 02/09/24 06:17 Potassium 4.2 mmol/L (3.5-5.1) 02/09/24 06:17 Chloride 105 mmol/L (98-107) 02/09/24 06:17 Carbon Dioxide 26 mmol/L (21-32) 02/09/24 06:17 Anion Gap 4 (3-11) 02/09/24 06:17 BUN 7 mg/dl (6-23) 02/09/24 06:17 Creatinine 0.57 mg/dl (0.6-1.4) L 02/09/24 06:17 Est Cr Clr Drug Dosing 209.9 ml/min 02/09/24 06:17 Est GFR ( Amer) 148.9 ml/min 02/09/24 06:17 Est GFR (Non-Af Amer) 128.4 ml/min 02/09/24 06:17 BUN/Creatinine Ratio 12.3 (10-20) 02/09/24 06:17 Glucose 105 mg/dl (70-99(Fasting)) H 02/09/24 06:17 Calcium 7.9 mg/dl (8.6-10.3) L 02/09/24 06:17 Magnesium 2.0 mg/dl (1.7-2.4) 02/09/24 06:17 Total Bilirubin 9.9 mg/dl (0.2-1.0) H 02/09/24 06:17 Direct Bilirubin 4.2 mg/dl (0-0.2) H 02/05/24 10:48 AST 154 U/L (13-39) H 02/09/24 06:17 ALT 83 U/L (7-52) H 02/09/24 06:17 Alkaline Phosphatase 205 U/L (34-104) H 02/09/24 06:17 Lactate Dehydrogenase 385 U/L (86-244) H 02/05/24 10:48 Total Creatine Kinase 78 U/L (30-223) 02/03/24 12:45 Troponin I High Sens 6.7 pg/ml (0-20) 02/08/24 04:18 Total Protein 5.7 gm/dl (6.0-8.3) L 02/09/24 06:17 Albumin 3.0 gm/dl (3.4-5.0) L 02/09/24 06:17 Globulin 2.7 gm/dl (2.5-4.0) 02/09/24 06:17 Albumin/Globulin Ratio 1.1 (0.9-2) 02/09/24 06:17 Lipase 95 U/L (11-82) H 02/08/24 04:18 Vitamin B12 1443 pg/ml (180-914) H 02/04/24 05:29 Folate 15.54 ng/ml (>5.38) 02/04/24 05:29 Nasal Screen MRSA (PCR) Negative (Negative) 02/07/24 09:30 Stl C. cayetanensis PCR Not Detected (NotDetected) 02/05/24 Unknown Stool Rotavirus A PCR Not Detected (NotDetected) 02/05/24 Unknown Stl Adenov F 40/41 PCR Not Detected (NotDetected) 02/05/24 Unknown Stool Astrovirus (PCR) Not Detected (NotDetected) 02/05/24 Unknown Stool Campylobacter PCR Not Detected (NotDetected) 02/05/24 Unknown Stl C. diff Tox B Gene Positive Cdiff Gene (Neg) H 02/05/24 Unknown Stl C.difficile Tox A&B Positive Cdiff Toxin (Negative) A* 02/05/24 Unknown Stool Cryptosporidium PCR Not Detected (NotDetected) 02/05/24 Unknown Stl E.coli Shiga Tox PCR Not Detected (NotDetected) 02/05/24 Unknown Stl Enterotoxigenic E PCR Not Detected (NotDetected) 02/05/24 Unknown Stool EPEC (PCR) Not Detected (NotDetected) 02/05/24 Unknown Stool EAEC (PCR) Not Detected (NotDetected) 02/05/24 Unknown Stl E. histolytica PCR Not Detected (NotDetected) 02/05/24 Unknown Stool Giardia Lamblia PCR Not Detected (NotDetected) 02/05/24 Unknown Stool Salmonella PCR Not Detected (NotDetected) 02/05/24 Unknown Stool Sapovirus (PCR) Not Detected (NotDetected) 02/05/24 Unknown Stl P. shigelloides PCR Not Detected (NotDetected) 02/05/24 Unknown Stl Shigella/EIEC PCR Not Detected (NotDetected) 02/05/[address].enterocolitica PCR Not Detected (NotDetected) 02/05/24 Unknown Stool Vibrio (PCR) Not Detected (NotDetected) 02/05/24 Unknown Stl Vibrio cholerae PCR Not Detected (NotDetected) 02/05/24 Unknown Stl Norovirus GI/GII PCR Not Detected (NotDetected) 02/05/24 Unknown Random Vancomycin 12.9 mcg/ml (10-20) 02/06/24 12:18 Urine Opiates Screen Neg (Neg) 02/04/24 01:10 Ur Methadone, Qual Neg (Neg) 02/04/24 01:10 Urine Barbiturates Neg (Neg) 02/04/24 01:10 Ur Phencyclidine (PCP) Neg (Neg) 02/04/24 01:10 U Amphetamin/Meth Scrn Neg (Neg) 02/04/24 01:10 MDMA (Ecstasy) Screen Neg (Neg) 02/04/24 01:10 U Benzodiazepines Scrn Neg (Neg) 02/04/24 01:10 Ur Cocaine Metabolite Neg (Neg) 02/04/24 01:10 U Marijuana (THC) Screen Neg (Neg) 02/04/24 01:10 Ethyl Alcohol mg/dL 379.8 mg/dl (<10.0) H 02/03/24 12:45 SARS-CoV-2 (PCR) NEGATIVE (Negative) 02/08/24 04:07 Influenza Type A (PCR) Negative (Neg) 02/08/24 04:07 Influenza Type B (PCR) Negative (Neg) 02/08/24 04:07 RSV (RT-PCR) Negative (Neg) 02/08/24 04:07 Blood Type A Negative 02/05/24 09:08 Impressions Abdomen/Pelvis CT 02/03/24 13:15 CT chest diagnostic wo con, CT abd pelvis wo con CT DOSE: HISTORY: fall, etoh TECHNIQUE: Multiaxial CT images of the chest, abdomen, and pelvis were performed without contrast. A dose lowering technique was utilized adhering to the principles of ALARA. COMPARISON: None. FINDINGS: Chest CT: No acute fractures within the chest. No mediastinal hematoma or l ymphadenopathy. The heart is normal in size. No pleural or pericardial effusions. Normal caliber thoracic aorta. Mild calcified plaque within the left coronary artery. Normal esophagus. No pneumothorax. The central airways are patent. No focal lung consolidations. No evidence for pulmonary edema. Abdomen/pelvis CT: No pneumoperitoneum. No pneumatosis. No acute fractures identified. Severe hepatic steatosis. The unenhanced pancreas, spleen, and adrenal glands are unremarkable. There are few punctate stones within the right kidney. No ureteral stones. No hydronephrosis. Normal caliber abdominal aorta. No retroperitoneal or pelvic lymphadenopathy. The bladder is unremarkable. No dilated loops of bowel to suggest an obstruction. Mild thickening of the ascending colon with mild pericolonic fat stranding. This suggests a mild nonspecific colitis. Normal appendix. Trace fluid/thickening along the posterior peritoneal lining/pararenal spaces. IMPRESSION: 1. No acute traumatic process within the chest, abdomen, pelvis. 2. Mild thickening of the ascending colon with pericolonic fat stranding. This is consistent with a nonspecific colitis. Follow-up endoscopy recommended for further evaluation. 3. Severe hepatic steatosis. 4. Right-sided nephrolithiasis. 5. Trace fluid/thickening within the bilateral anterior perirenal spaces. This nonspecific but could be chronic. Follow-up abdomen and pelvis CT in 3-6 months recommended to ensure stability/resolution. ACT 112: Negative or not required by law. Electronically signed by: Ruperto Fraga M.D. 02/03/2024 2:[address] 02/03/24 13:[address] DOSE: 4196.75 mGy.cm HISTORY: fall, altered mental status TECHNIQUE: Multiaxial CT images of the cervical spine were performed and reformatted in the sagittal and coronal plane without the use of contrast. A dose lowering technique was utilized adhering to the principles of ALARA. COMPARISON: None. FINDINGS: No fractures. No subluxation. Prevertebral soft tissues and the C1-C2 interval are intact. No pneumothorax. Right neck subcutaneous hemorrhage. IMPRESSION: No fractures within the cervical spine. Right neck subcutaneous hemorrhage. ACT 112: Negative or not required by law. Electronically signed by: Ruperto Fraga M.D. 02/03/2024 2:[address] 02/03/24 13:[address] DOSE: HISTORY: fall, facial swelling/ecchymosis TECHNIQUE: Multiaxial CT images of the maxillofacial region were performed and reformatted in the coronal plane without the use of contrast. A dose lowering technique was utilized adhering to the principles of ALARA. COMPARISON: None. FINDINGS: The visualized cervical spine, skull base, pterygoid plates, nasal bones, lamina papyracea, orbital floors, mandible, and zygomatic arches are intact. No acute fractures identified. The globes and retrobulbar fat are intact. There is right periorbital, facial, and right neck subcutaneous hemorrhage/contusion. A small amount of hemorrhage partially surrounds the right submandibular gland. Focal right cheek subcutaneous hematoma on image 310 measuring 3.8 cm. IMPRESSION: 1. No fractures within the maxillofacial region. 2. Right periorbital/facial and right neck subcutaneous hemorrhage/contusion. ACT 112: Negative or not required by law. Electronically signed by: Ruperto Fraga M.D. 02/03/2024 2:[address] 02/03/24 13:[address] DOSE: HISTORY: fall, altered mental status TECHNIQUE: Multiaxial CT images of the head were performed without the use of intravenous contrast. Automated exposure control was utilized for this study. A dose lowering technique was utilized adhering to the principles of ALARA. Comparison: None. Findings: The paranasal sinuses and mastoid air cells are clear. The calvarium and skull base are intact. The ventricles and sulci are within normal limits. There is no mass, hematoma, midline shift, or acute infarct. Right frontal scalp and right facial subcutaneous hemorrhage/contusion. Impression: No acute intracranial abnormality. Right frontal scalp and facial soft tissue injury ACT 112: Negative or not required by law. Electronically signed by: Ruperto Fraga M.D. 02/03/2024 2:[address] 02/03/24 13:20 CT chest diagnostic wo con, CT abd pelvis wo con CT DOSE: HISTORY: fall, etoh TECHNIQUE: Multiaxial CT images of the chest, abdomen, and pelvis were performed without contrast. A dose lowering technique was utilized adhering to the principles of ALARA. COMPARISON: None. FINDINGS: Chest CT: No acute fractures within the chest. No mediastinal hematoma or lymphadenopathy. The heart is normal in size. No pleural or pericardial effusions. Normal caliber thoracic aorta. Mild calcified plaque within the left coronary artery. Normal esophagus. No pneumothorax. The central airways are patent. No focal lung consolidations. No evidence for pulmonary edema. Abdomen/pelvis CT: No pneumoperitoneum. No pneumatosis. No acute fractures identified. Severe hepatic steatosis. The unenhanced pancreas, spleen, and adrenal glands are unremarkable. There are few punctate stones within the right kidney. No ureteral stones. No hydronephrosis. Normal caliber abdominal aorta. No retroperitoneal or pelvic lymphadenopathy. The bladder is unremarkable. No dilated loops of bowel to suggest an obstruction. Mild thickening of the ascending colon with mild pericolonic fat stranding. This suggests a mild nonspecific colitis. Normal appendix. Trace fluid/thickening along the posterior peritoneal lining/pararenal spaces. IMPRESSION: 1. No acute traumatic process within the chest, abdomen, pelvis. 2. Mild thickening of the ascending colon with pericolonic fat stranding. This is consistent with a nonspecific colitis. Follow-up endoscopy recommended for further evaluation. 3. Severe hepatic steatosis. 4. Right-sided nephrolithiasis. 5. Trace fluid/thickening within the bilateral anterior perirenal spaces. This nonspecific but could be chronic. Follow-up abdomen and pelvis CT in 3-6 months recommended to ensure stability/resolution. ACT 112: Negative or not required by law. Electronically signed by: Ruperto Fraga M.D. 02/03/2024 2:29 PM Liver Ultrasound 02/04/24 00:00 ABDOMINAL ULTRASOUND, RIGHT UPPER QUADRANT HISTORY: elevated lft. COMPARISON: Abdomen and pelvis CT 02/03/2024. FINDINGS: Pancreas: The pancreatic head and tail are obscured by overlying bowel gas. The remaining portions of the pancreas are within normal limits. Liver: The liver is echogenic consistent with fatty change. 20 cm in length. Focal fatty sparing near the elbow fossa. Gallbladder: No gallbladder wall thickening. No gallstones. CBD: 5 mm. Right kidney: No hydronephrosis. IMPRESSION: 1. Hepatomegaly demonstrating fatty change. 2. Normal gallbladder. No gallstones ACT 112: Negative or not required by law. Electronically signed by: Ruperto Fraga M.D. 02/04/2024 8:39 AM Chest CTA 02/08/24 01:22 Exam(s): CTA CHEST IV Amt: 108 ML OPTIRAY 320 EXAM: CT Angiography Chest With Intravenous Contrast CLINICAL HISTORY: Reason for exam: cp. TECHNIQUE: Axial computed tomographic angiography images of the chest with intravenous contrast. CTDI is 27.71 mGy and DLP is 784.66 mGy-cm. Automated exposure control was utilized for the study. A dose lowering technique was utilized adhering to the principles of ALARA. MIP reconstructed images were created and reviewed. COMPARISON: No relevant prior studies available. FINDINGS: Pulmonary arteries: Unremarkable. No acute pulmonary embolism. Aorta: No acute findings. No thoracic aortic aneurysm. Lungs: See below. Pleural space: Small right pleural effusion, with subjacent airspace consolidation, concerning for aspiration pneumonia. Small left pleural effusion. Heart: Unremarkable. No cardiomegaly. No significant pericardial effusion. No evidence of RV dysfunction. Bones/joints: No acute fracture. No dislocation. Soft tissues: Unremarkable. Lymph nodes: Unremarkable. No enlarged lymph nodes. Liver: Severe hepatic steatosis. IMPRESSION: 1. No acute pulmonary embolism. 2. Small right pleural effusion, with subjacent airspace consolidation, concerning for aspiration pneumonia. Small left pleural effusion. 3. Severe hepatic steatosis. Electronically signed by: Nir Jane MD 02/08/24 03:41 AM Ordered Studies 02/03/24 13:15 CT Abd and Pelvis [CT abd pelvis wo con] Stat CT face [CT facial bones wo con] Stat CT head/brain wo con Stat CT neck [CT cervical spine wo con] Stat 02/03/24 13:20 CT chest diagnostic wo con Stat 02/04/24 US liver Routine 02/08/24 01:22 CT angio chest PE protocol Stat Hospital Course (1) Alcoholic intoxication: 38-year-old male with history of alcohol use disorder, hypertension is brought to the ED with multiple falls. Patient was very chatting with her sister who noticed facial bruise; police was sent to check on him. Multiple liquor bottles, blood and feces on the floor. Patient appeared to be intoxicated when brought to the ED. Patient reported fall 4 days ago on the bathroom sink which resulted in the injury. He is admitted to the hospital for further evaluation Alcohol intoxication Alcohol use disorder Alcohol withdrawal --Blood alcohol level 379 MG/DL Continue thiamine, folic acid Completed Librium protocol Currently no signs of withdrawal Counseled to quit drinking on multiple occasions Mechanical fall Right-sided facial swelling involving right eye Right cheek subcutaneous hematoma Suspected infection of subcutaneous hematoma--less likely H/O fall 4 days prior to admission --Face CT:No fractures within the maxillofacial region. Right periorbital/facial and right neck subcutaneous hemorrhage/contusion. --CT headNo acute intracranial abnormality. Right frontal scalp and facial soft tissue injury --Blood cultures negative to date -- Empirically on Unasyn and vancomycin>> de-escalate to Augmentin --Appreciate behavioral health therapist Input S/P Right Cheek Drainage of Hematoma by Dr. Chris on 02/07/2024 pain control Wound culture growing staph species ? Contaminant Continue Augmentin for now Thrombocytopenia Likely due to alcohol use S/P 3 units of platelet transfusion Platelet count slowly improving No bleeding issues Monitor Alcohol hepatitis Elevated total bilirubin, direct bilirubin Transaminitis Liver ultrasound shows fatty liver Given worsening DF, started on prednisolone Appreciate GI input Avoid hepatotoxic agents as able Advised to follow up with GI/Life Sciences Manager on discharge LFTs slowly trending down C. difficile colitis Continue p.o. vancomycin Monitor volume status IV fluids as needed Hypokalemia Likely due to GI losses Continue potassium supplements Monitor Sinus tachycardia Likely related with alcohol withdrawal. --Echocardiogram obtained EF of 60 to 65%; no significant valvular pathology. Continue metoprolol 25 mg twice daily Hypertension Not on medications Continue metoprolol DVT prophylaxis SCDs due to thrombocytopenia Code Status Full code Disposition Home Total Time Total Time Spent Total Time Spent (In Minutes): 65 minutes Discharge Plan Discharge Items Patient Disposition: Home - Self-Care Reason For Visit: ALOCHOLISM, FACIAL INJURY, ALCOHOL HEPATITIS Discharge Diagnosis: Alcohol use disorder/withdrawal Mechanical fall Right facial hematoma Alcoholic hepatitis Thrombocytopenia C. difficile colitis Activity: Per Instructions section Exercise/Sports: Wait until after follow-up appointment Non-emergency contact: Primary Care Provider, Surgeon and Enterprise Sales Executive Call non-emergency contact if: you have any medication questions, your symptoms worsen, your pain is concerning for you and you have a fever Follow-up/Referrals: Cheyenne Gonzales CRNP [Nurse Practitioner] - (The GI office will contact you for a follow up appointment.) Chantal Jose CRNP [Outside Practitioners] - (Date & Time 02/12/2024 11:00 AM Provider Chantal Jose CRNP Department [facility] ) Diet: Regular, Full liquid and Clear liquid Diet Texture: Easy to Chew Addtl Attending Provider Instructions: ADDITIONAL ACTIVITY RECOMMENDATIONS: * [place] teeth after every meal. It is very important to keep your mouth clean to prevent infection. * Starting tonight rinse with the Peridex as directed then 2 x a day * it is very important to keep well hydrated, this prevents fever SPECIAL CARE INSTRUCTIONS: * Massage your right cheek * You can shower and shave *It is not uncommon that between day 2-4 that your swelling will be at its worst this is very normal, do not be alarmed. * Keep ice on the side of your face for the next 24 to 36 hours. This will help keep the swelling down. * Some swelling is common. It should gradually decrease within 4-5 days. * A certain amount of bleeding is to be expected. It is often possible to control mild oozing by placing folded gauze over the area and biting down for 30 minutes. If you are unable to control excessive bleeding, * You may experience some discomfort for a few days. If pain or swelling increases, Call Dr Chris * Return to the office for a follow up check up on: February 25 or a few days after Call to arrange the time and date * office address--[address] phone # [phone] [facility] [employer] Provider Instructions: Follow-up with your primary care physician Chantal MAHONEY on 02/12/2024 11:00 AM Follow-up with your manager beverage Cheyenne Gonzales in 2-3 weeks Follow-up with your surgeon Dr. Chris as recommended -- Your final blood, wound cultures are pending at the time of discharge. Follow-up with your physician for results. --Continue with massage, heat and wound care, Peridex rinses for your facial hematoma as recommended by your surgeon. --- Complete the Augmentin, oral vancomycin course as prescribed. -- Obtain blood test (complaints of metabolic panel) in 1 week and follow-up with your primary care physician, manager beverage for further recommendations -- Complete prednisolone course for 26 days as prescribed. Discuss with your manager beverage for duration and tapering course of prednisolone for another 2 to 4 weeks to be determined by your physician. Seek immediate medical attention if your symptoms reoccur or worsen Please take all medications as instructed on discharge list below. Please call if you have any questions or problems. You can reach a [facility] hospitalist on duty at [facility] 24 hours a day by calling [phone] Pending Studies at Discharge: Yes Studies:: Blood, wound cultures Stand-Alone Forms: My [facility] [employer], Smoking Cessation Medications and DC Order Prescriptions: New thiamine HCl (vitamin B1) 100 mg Tablet 100 mg PO DAILY Qty: 30 0RF potassium chloride 20 mEq Tablet,Er Particles/Crystals 20 meq PO BID Qty: 7 0RF folic acid 1 mg Tablet 1 mg PO DAILY Qty: 30 0RF amoxicillin-pot clavulanate 500-125 mg Tablet 1 tab PO BIDM Qty: 8 0RF metoprolol tartrate 25 mg Tablet 25 mg PO BID Qty: 60 0RF Mag 64 64 mg Tablet,Delayed Release (Dr/Ec) 64 mg PO BID Qty: 60 0RF Advanced Probiotic 625 mg (10 billion cell) Capsule 1 cap PO DAILY Qty: 30 0RF vancomycin 125 mg capsule 125 mg PO Q6H Qty: 30 0RF prednisolone sodium phosphate 10 mg tablet,disintegrating 40 mg PO DAILY 26 Days Qty: 104 0RF chlorhexidine gluconate 0.12 % Mouthwash 15 ml MT Q6 PRNQty: 0 0RF Discharge Orders: Discharge Order (Routine); Ordered 02/09/24 Ordered By: Saeed Mckenna Admission Data Admit Date/Time: 02/03/24 22:54 Attending Provider: Saeed Mckenna Admit Provider: Omega Arrington Primary Care Provider: PCP,NO Other Providers: Manjeet Salguero; Justin Logan; Gail Sánchez; Caryl Pacheco; Courtney Munoz; Dipti Castillo; Antonio Edouard; Otoniel Flores; Ken Moscoso; Chela Suazo; Gerardo Camarena; Jacinta Sevilla; Mandy Gaines; Cheyenne Gonzales; Jessika Acevedo; Monserrat Darby; Ollie De Oliveira; Nam Sánchez; Floresita Yadav; Cabrera Sarmiento Jr; Aj Chris; Omega Arrington
== END 2024-02-09 14:00 | disposition home or self-care (01) | DRG 372 ==
LOC: ED 12:35 → 2S 22:54 → SUATTDRO 22:54 → 2S 23:33

== ENCOUNTER 2024-05-09 11:12 | Observation (INO) ==
--- NOTE | 2024-05-09 11:34 | Emergency Department Note ---
Impression & Plan Hip pain, left, Lumbar radiculopathy, Chronic left-sided low back pain, CIARA (acute kidney injury), Alcoholic intoxication, Alcohol abuse, Abnormal LFTs ED Provider Note ED Provider Note NAME: NANDO PEREIRA AGE:38 SEX: Male : 1985 ARRIVES VIA: EMS INFORMANT: Patient ED PROVIDER(s): Elli Henning, CHIEF COMPLAINT: Left hip and back pain with radiation in the left lower leg, referred by orthopedics HPI: This is a 38-year-old male with a history of left low back, left hip, left lower quadrant abdominal pain radiates into the left lower extremity since January following a fall that was out of the area. He states he has had daily pain and has been using ibuprofen, Tylenol, and lidocaine patches. He states initially after the fall he was on other medications however is not taking anything else at this time. He states today was the first time he had seen orthopedics. He states he was sent here by ambulance from the orthopedics office due to concern that he needs a stat MRI. Notes taken by charge nurse states he has being sent here for back pain, weakness, fatigue and that he was diaphoretic and ill- appearing in the office. Patient states he does have a history of alcohol abuse. He states he drinks alcohol approximately 3 days a week. He states typically this is hard liquor and he will drink as much is 750 mL of hard liquor in an evening. He states his last drink was yesterday. He states he does occasionally have mild withdrawal symptoms including sweating, dizziness, nausea and shakiness. He does feel that could have contributed to his symptoms this morning in the orthopedic office. PAST MEDICAL HISTORY:See Below PAST SURGICAL HISTORY:See Below FAMILY HISTORY:See Below SOCIAL HISTORY:See Below HOME MEDICATIONS:See Below ALLERGIES:See Below VITALS:See Below PHYSICAL EXAMINATION: GENERAL: alert, well appearing, well nourished, no distress, non-toxic EYE EXAM: normal conjunctiva, PERRL and EOM's grossly intact OROPHARYNX: no exudate, no erythema, lips, buccal mucosa, and tongue normal and mucous membranes are moist NECK: supple, no nuchal rigidity, no adenopathy, non-tender LUNGS: Clear to auscultation. Normal chest wall mechanics, no w/r/r HEART: no murmurs, S1 normal and S2 normal ABDOMEN: abdomen soft, non-tender, normo-active bowel sounds, no masses, no rebound or guarding. SKIN: no rashes, petechiae, orbruising UPPER EXTREMITIES: upper extremities are grossly normal. FROM, nml pulses b/l. LOWER EXTREMITIES: No pitting edema. FROM, nml pulses b/l. NEURO EXAM: Normal sensorium, cranial nerves II-XII grossly intact, normal speech, no facial droop,nogross weakness of arms, no gross weakness of legs. Gross sensation intact. No ataxia. Vital Signs: reviewed and remarkable Differential Diagnosis: Lumbar radiculopathy, musculoskeletal strain, DJD, disc herniation, discitis, bursitis, diverticulitis, renal colic, UTI, as well as others were considered MEDICAL DECISION MAKING: This is a 38-year-old male presents emergency department after being seen in the orthopedic office and being referred here as they were concerned that he was ill-appearing. Patient presented to them with chronic left low back and left hip pain with accompanying lumbar radiculopathy after a fall back in January. Patient afebrile vital signs stable here though he did appear clinically dehydrated. Labs drawn and sent, IV established, patient monitored on telemetry. He was given IV fluids, and after further discussion regarding his alcohol use was sent for CT of the abdomen and pelvis. Patient noted to have abnormal LFTs likely from alcoholic hepatitis. He was also now noted to have CIARA. Patient states he had been previously told he had abnormal LFTs before from his drinking however no prior mention to him of any kidney dysfunction. Patient continued on IV fluid and banana bag added. He was updated on all results and need for additional inpatient evaluation and monitoring. CT of the abdomen and pelvis otherwise reassuring. I do not suspect other acute spinous process requiring emergent MRI. Case discussed with the hospitalist team for additional evaluation and management. No evidence of evolving alcohol withdrawal in the emergency department. Consultation(s): 1500: Discussed with Laurie Panda hospitalist team, for additional evaluation and management. ER Treatment Provided: See below Diagnostics Interpreted By Me: -Cardiac Monitoring: An order was placed for continuous cardiac monitoring. The monitor shows a rate of 96 with normal sinus rhythm. -Laboratory studies: As stated above and show below. -Imaging studies: CT A/P: No obvious ureterolithiasis Triage Nursing Note Reviewed Prior/Outside Records Reviewed -orthopedic office visit from today reviewed Past Med/Surg History Problem List (Updated 05/09/24 @ 20:53 by Elli Henning DO) Abnormal LFTs (Acute) Alcohol abuse (Acute) Chronic left-sided low back pain (Acute) High anion gap metabolic acidosis CIARA (acute kidney injury) (Acute) Lumbar radiculopathy (Acute) Hip pain, left (Acute) Back pain Alcoholic hepatitis Alcoholic intoxication (Acute) Medical History Alcoholism Surgical History History of incision and drainage (02/07/24) Right Cheek Drainage of Hematoma(Right) - Aj Chris DMD No pertinent past surgical history Family History Other No pertinent family history Social History Smoking Status: Never smoker Hx Alcohol Use: Yes Alcohol type: hard liquor Alcohol type Comment: 750 ml 3-4 evenings / week Hx Substance Use: No Preferred Language: Citizen Of [place] Communication Ability: Effective Hearing Ability: Normal Industrial Hygienist Required: No Beliefs That Will Affect Care: Adventism Adventism Beliefs: Mormon marital status: Single Current Living Situation: Alone Current Living Situation Comment: Lives alone in apartment in [place]. Family resides in [place] current occupational status: employed current occupation: [employer] Feels Safe at Home: Yes Safety Concerns: Feels Safe At This Time Assistive Devices: Other Assistive Devices Comment: Wooden stick Allergies Allergies Allergy/AdvReac Type Severity Reaction Status Date / Time No Known Allergies Allergy Unverified 02/26/24 13:56 Home Meds Previous Rx's Medication Instructions Recorded L.acidop,casei,lactis,rham-B.lact,diane 1 cap PO DAILY #30 caps 02/09/24 625 mg (10 billion cell) capsule (Advanced Probiotic) chlorhexidine gluconate 0.12 % 15 ml MT Q6 PRN #0 mL 02/09/24 mouthwash folic acid 1 mg tablet 1 mg PO DAILY #30 tabs 02/09/24 magnesium chloride 64 mg 64 mg PO BID #60 tabs 02/09/24 (magnesium chloride) tablet,delayed release (Mag 64) metoprolol tartrate 25 mg tablet 25 mg PO BID #60 tabs 02/09/24 potassium chloride 20 mEq 20 meq PO BID #7 tabs 02/09/24 tablet,extended release(part/cryst) thiamine HCl (vitamin B1) 100 mg 100 mg PO DAILY #30 tabs 02/09/24 tablet Results & Data (ED) Vital Signs Vital Signs - 24 hr 05/09/24 11:18 05/09/24 12:11 05/09/24 14:12 Temperature 36.9 C Temperature Source Oral Pulse Rate 95 H 92 H Pulse Rate [Finger] 98 H Respiratory Rate 18 16 Respiratory Effort / Characteristics Non-Labored Respiratory Depth Normal Blood Pressure 151/88 H Blood Pressure [Left Arm] 134/72 Blood Pressure Mean 109 Blood Pressure Mean [Left Arm] 92 Pulse Oximetry 96 97 Oxygen Delivery Method Room Air Room Air Sepsis Recent Fever Within 48 Hours No Sepsis New/Unexplained Change in Mental Status No Sepsis Action Taken by Nursing No Action Required Laboratory Data 05/09/24 11:55 05/09/24 11:55 Lab Results 05/09/24 05/09/24 Range/Units 11:55 12:00 WBC 10.67 (4.8-10.8) K/ul RBC 5.03 (4.70-6.10) M/uL Hgb 15.5 (14.0-18.0) g/dl Hct 46.1 (42.0-52.0) % MCV 91.7 (80.0-100.0) fL MCH 30.8 (25.0-34.0) pg MCHC 33.6 (32.0-36.0) g/dL RDW Std Deviation 45.3 (36.4-46.3) fL RDW Coeff of Shani 13.3 (11.5-14.5) % Plt Count 143 (130-400) K/uL MPV 10.2 (9.4-12.4) fL Immature Gran % (Auto) 0.3 % Neut % (Auto) 89.4 % Lymph % (Auto) 6.4 % Reeves % (Auto) 3.3 % Eos % (Auto) 0.0 % Baso % (Auto) 0.6 % Neut # (Auto) 9.55 H (1.40-6.50) K/uL Lymph # (Auto) 0.68 L (1.20-3.40) K/uL Reeves # (Auto) 0.35 (0.11-0.59) K/uL Eos # (Auto) 0.00 (0.00-0.50) K/uL Baso # (Auto) 0.06 (0.00-0.20) K/uL Immature Gran # (Auto) 0.03 (0.01-0.20) K/uL PT 11.4 (9.0-12.0) Seconds INR 1.1 (0.9-1.1) Sodium 140 (136-145) mmol/L Potassium 3.8 (3.5-5.1) mmol/L Chloride 94 L (98-107) mmol/L Carbon Dioxide 21 (21-32) mmol/L Anion Gap 25 H (3-11) BUN 20 (6-23) mg/dl Creatinine 2.51 H (0.6-1.4) mg/dl Est Cr Clr Drug Dosing 47.0 ml/min Est GFR ( Amer) 35.7 ml/min Est GFR (Non-Af Amer) 30.8 ml/min BUN/Creatinine Ratio 8.0 L (10-20) Glucose 90 (70-99(Fasting)) mg/dl Calcium 9.7 (8.6-10.3) mg/dl Magnesium 2.1 (1.7-2.4) mg/dl Total Bilirubin 2.4 H (0.2-1.0) mg/dl AST 400 H (13-39) U/L ALT 212 H (7-52) U/L Alkaline Phosphatase 217 H (34-104) U/L Total Protein 8.3 (6.0-8.3) gm/dl Albumin 4.8 (3.4-5.0) gm/dl Globulin 3.5 (2.5-4.0) gm/dl Albumin/Globulin Ratio 1.4 (0.9-2) Lipase 82 (11-82) U/L Vitamin B12 1083 H (180-914) pg/ml Urine Color Dark Yellow Urine Appearance Turbid A (Clear) Urine pH 6.0 (4.5-7.5) Ur Specific [place] 1.015 (1.000-1.030) Urine Protein 3+ H (Negative) Urine Glucose (UA) Trace H (Negative) Urine Ketones 1+ H (Negative) Urine Blood 2+ H (Negative) Urine Nitrite Negative (Negative) Urine Bilirubin Negative (Negative) Urine Urobilinogen Negative (Negative) Ur Leukocyte Esterase Trace H (Negative) Urine WBC (Auto) 21-50 H (0-5) /hpf Urine RBC (Auto) 6-10 H (0-2) /hpf U Hyaline Cast (Auto) >20 H (0-2) /lpf U Epithel Cells (Auto) 3-5 H (0-2) /hpf Urine Bacteria (Auto) None Seen (None Seen) Hyaline Casts Present A (None Presnt) /lpf Granular Casts Present A (None Prsent) /lpf Ethyl Alcohol mg/dL 229.9 H (<10.0) mg/dl Administered Medications Lorazepam 1 mg/ Syringe 1 mls @ 2 mls/min IV UD PRN; Protocol PRN Reason: EtOH Withdrawal AWSS Score 6,7 Stop: 06/08/24 15:21 Last Admin: 05/09/24 18:32 Dose: 2 mls/min Documented By: SAMANTA Sodium Chloride (Nss) 1,000 mls @ 80 mls/hr IV .[id number] [facility] Stop: 06/08/24 19:22 Last Admin: 05/09/24 20:20 Dose: 80 mls/hr Documented By: JOSE Magnesium Chloride (Magnesium Chloride W/Calcium 64mg Delayed Rel Tab) 64 mg PO BID JENN Stop: 06/08/24 20:59 Last Admin: 05/09/24 20:18 Dose: 64 mg Documented By: JOSE Metoprolol Tartrate (Metoprolol Tartrate 25 Mg Tab) 25 mg PO BID [facility] Stop: 06/08/24 20:59 Last Admin: 05/09/24 20:19 Dose: 25 mg Documented By: JOSE Oxycodone HCl (Oxycodone Hcl Ir 5 Mg Tab (Immediate Release)) 5 mg PO Q6H PRN PRN Reason: Severe Pain (Scale 7, 8, 9,10) Stop: 05/23/24 19:43 Last Admin: 05/09/24 20:17 Dose: 5 mg Documented By: JOSE Discontinued Medications Gabapentin (Gabapentin 600 Mg Tab) 1,200 mg PO NOW ONE Stop: 05/09/24 15:23 Last Admin: 05/09/24 16:38 Dose: 1,200 mg Documented By: SAMANTA Sodium Chloride (Nss) 1,000 mls @ 999 mls/hr IV .Q1H1M ONE Stop: 05/09/24 12:30 Last Infusion: 05/09/24 13:01 Dose: Infused Documented By: Admin: 05/09/24 11:59 Dose: 999 mls/hr Documented By: DIPTI Sodium Chloride (Nss) 1,000 mls @ 999 mls/hr IV .Q1H1M ONE Stop: 05/09/24 14:38 Last Infusion: 05/09/24 15:12 Dose: Infused Documented By: Admin: 05/09/24 14:11 Dose: 999 mls/hr Documented By: DIPTI Multivitamins 10 ml/ Thiamine HCl 100 mg/ Folic Acid 1 mg/Sodium Chloride 1,011.2 mls @ 500 mls/hr IV .Q2H2M ONE Stop: 05/09/24 15:39 Last Infusion: 05/09/24 16:39 Dose: Infused Documented By: Admin: 05/09/24 14:11 Dose: 500 mls/hr Documented By: DIPTI Pantoprazole Sodium 40 mg/ (Syringe) 10 mls @ 5 mls/min IV NOW ONE Stop: 05/09/24 13:40 Last Admin: 05/09/24 16:04 Dose: 5 mls/min Documented By: SAMANTA Lorazepam (Lorazepam 1 Mg/1 Ml Syr Ed Inj Use) Confirm Administered Dose 1 mg .ROUTE .STK-MED ONE Stop: 05/09/24 18:31 Last Admin: 05/09/24 18:34 Dose: Not Given Documented By: SOURAV Imaging Data Radiologist's Impression: Abdomen/Pelvis CT 05/09/24 13:38 CT abd pelvis wo con CLINICAL HISTORY: low back, left flank/LLQ pain, CIARA TECHNIQUE: Helical axial images of the abdomen and pelvis were obtained. Automated dose lowering techniques and/or adjustment according to patient size were utilized for this exam. This exam was performed without intravenous contrast. CT DOSE: 1390.12 mGy.cm COMPARISON: Comparison is made to CT abdomen pelvis 02/03/2024 FINDINGS: Lower chest: No acute abnormality. Liver: Hepatic steatosis is noted. Gallbladder and biliary tree: Vicarious excretion of contrast is seen in the gallbladder. No intra- or extrahepatic biliary ductal dilation. Pancreas: Unremarkable, no focal lesions. Spleen: Splenule is incidentally noted. Adrenals: Unremarkable. Kidneys and ureters: Nonobstructive nephrolithiasis is seen. Perinephric stranding is seen. Bladder: Unremarkable. Reproductive organs: Unremarkable. Bowel: Thickening of the wall of the ascending colon. Lymph nodes Retroperitoneal: Unremarkable. Pelvic: Unremarkable. Mesenteric: Unremarkable. Peritoneum: Normal. Vessels: Unremarkable. Abdominal wall: Unremarkable. Bones: Unremarkable. IMPRESSION: 1. No evidence of hydronephrosis, obstructive stone, or diverticulitis to explain left flank pain. 2. There is thickening of the ascending colonic wall, similar to prior exam, consistent with a nonspecific colitis. 3. Hepatic steatosis. ACT 112: Negative or not required by law. Electronically signed by: Al Covarrubias M.D. 05/09/2024 2:27 PM Discharge Plan Visit Data Chief Complaint: Back Injury/Pain Stated Complaint: L LOWER QUAD PAIN ED Provider: Elli Henning Discharge Problem: Hip pain, left, Lumbar radiculopathy, Chronic left-sided low back pain, CIARA (acute kidney injury), Alcoholic intoxication, Alcohol abuse, Abnormal LFTs Patient Disposition: Admitted As Inpatient Discharge Instructions Interventions: ED Discharge Assessment Last Done: 05/09/24 19:27
[2024-05-09] MEDS: SODIUM CHLORIDE 0.9% 1,000 ML IV ONE ×2 (11:59→14:11)
[2024-05-09 12:25] LABS: Basophils # (auto) 0.06 K/uL (0.00-0.20); Basophils % (auto) 0.6 %; Hematocrit (blood only) 46.1 % (42.0-52.0); Hemoglobin 15.5 g/dl (14.0-18.0); Immature Granulocytes # (auto) 0.03 K/uL (0.01-0.20); Immature Granulocytes % (auto) 0.3 %; Lymphocytes # (auto) 0.68 K/uL (1.20-3.40); Lymphocytes % (auto) 6.4 %; Mean Corpuscular Hemoglobin 30.8 pg (25.0-34.0); Mean Corpuscular Hgb Conc 33.6 g/dL (32.0-36.0); Mean Corpuscular Volume 91.7 fL (80.0-100.0); Mean Platelet Volume 10.2 fL (9.4-12.4); Monocytes # (auto) 0.35 K/uL (0.11-0.59); Monocytes % (auto) 3.3 %; Neutrophils # (auto) 9.55 K/uL (1.40-6.50); Neutrophils % (auto) 89.4 %; Platelet Count 143 K/uL (130-400); RDW Coefficient of Variation 13.3 % (11.5-14.5); RDW Standard Deviation 45.3 fL (36.4-46.3); Red Blood Count 5.03 M/uL (4.70-6.10); White Blood Count 10.67 K/ul (4.8-10.8)
[2024-05-09 12:33] LABS: INR 1.1 (0.9-1.1); Prothrombin Time 11.4 Seconds (9.0-12.0)
[2024-05-09 12:39] LABS: Appearance Urine Turbid (Clear); Bacteria Urine Automated None Seen (None Seen); Bilirubin Urine Negative (Negative); Blood Urine 2+ (Negative); Cast Urine Automated >20 /lpf (0-2); Color Urine Dark Yellow; Glucose Urine UA Trace (Negative); Granular Casts Urine Present /lpf (None Prsent); Hyaline Casts Urine Present /lpf (None Presnt); Ketones Urine 1+ (Negative); Leukocyte Esterase Urine Trace (Negative); Nitrite Urine Negative (Negative); Protein Urine 3+ (Negative); Specific Gravity Urine 1.015 (1.000-1.030); Urobilinogen Urine Negative (Negative); WBC Urine Automated 21-50 /hpf (0-5)
[2024-05-09 13:28] LABS: Albumin Level 4.8 gm/dl (3.4-5.0); Bilirubin,Total 2.4 mg/dl (0.2-1.0); Calcium 9.7 mg/dl (8.6-10.3); Magnesium 2.1 mg/dl (1.7-2.4); Potassium 3.8 mmol/L (3.5-5.1)
[2024-05-09 13:34] LABS: Albumin Globulin Ratio 1.4 (0.9-2); Est GFR (African American) 35.7 ml/min; Est GFR (Non-African American) 30.8 ml/min; Globulin 3.5 gm/dl (2.5-4.0); Total Protein 8.3 gm/dl (6.0-8.3)
[2024-05-09] MEDS: MULTI-VITAMIN INFUSION 10 ML, THIAMINE HCL 100 MG, FOLIC ACID 1 MG in SODIUM CHLORIDE 0... IV ONE (14:11)
--- NOTE | 2024-05-09 14:29 | CT Scan Report ---
CT abd pelvis wo con CLINICAL HISTORY: low back, left flank/LLQ pain, CIARA TECHNIQUE: Helical axial images of the abdomen and pelvis were obtained. Automated dose lowering tech niques and/or adjustment according to patient size were utilized for this exam. This exam was perfor med without intravenous contrast. CT DOSE: 1390.12 mGy.cm COMPARISON: Comparison is made to CT abdomen pelvis 02/03/2024 FINDINGS: Lower chest: No acute abnormality. Liver: Hepatic steatosis is noted. Gallbladder and biliary tree: Vicarious excretion of contrast is seen in the gallbladder. No intra- o r extrahepatic biliary ductal dilation. Pancreas: Unremarkable, no focal lesions. Spleen: Splenule is incidentally noted. Adrenals: Unremarkable. Kidneys and ureters: Nonobstructive nephrolithiasis is seen. Perinephric stranding is seen. Bladder: Unremarkable. Reproductive organs: Unremarkable. Bowel: Thickening of the wall of the ascending colon. Lymph nodes Retroperitoneal: Unremarkable. Pelvic: Unremarkable. Mesenteric: Unremarkable. Peritoneum: Normal. Vessels: Unremarkable. Abdominal wall: Unremarkable. Bones: Unremarkable. IMPRESSION: 1. No evidence of hydronephrosis, obstructive stone, or diverticulitis to explain left flank pain. 2. There is thickening of the ascending colonic wall, similar to prior exam, consistent with a nonsp ecific colitis. 3. Hepatic steatosis. ACT 112: Negative or not required by law. Electronically signed by: Al Covarrubias M.D. 05/09/2024 2:27 PM
[2024-05-09] MEDS ORDERED: LORazepam 3 MG in SYRINGE 1.5 ML IV PRN (15:22)
[2024-05-09] MEDS ORDERED: GABAPENTIN 1200MG ALCOHOL WITHDRAWAL LOAD PO STA (15:22)
[2024-05-09] MEDS ORDERED: Ativan IV Alcohol Withdrawal--Active Protocol IV PRN (15:22)
[2024-05-09] MEDS ORDERED: LORazepam 2 MG in SYRINGE 1 ML IV PRN (15:22)
--- NOTE | 2024-05-09 15:26 | History & Physical Report ---
Date of Service May 09, 2024 Assessment & Plan (1) Hip pain, left: (2) Lumbar radiculopathy: Plan: This is a 38-year-old male with PMH of alcohol use disorder, hypertension, history of alcoholic hepatitis and thrombocytopenia who presents with left hip pain. Sent over from [facility] ortho office for diaphoresis and ill appearance in setting of L hip pain for further work up Presentation consistent with etoh intoxication and start of withdrawal process, discussed below Chronic L hip pain extending to lower back and L leg x 3 months Reports XR and CT in the past + SLRT but no acute bowel/bladder incontinence, saddle anesthesia or lower extremity weakness Will obtain MRI lumbar spine and CT of L hip Pain control, fall precautions (3) Alcoholic intoxication: Plan: Found to be tachycardic with heart rate of 95, ethyl alcohol level 229.0 History of significant alcohol use, endorsing 750 mL vodka last evening around 8 PM Banana bag, p.o. thiamine and folic acid tomorrow, continue IV fluids, encourage p.o. intake Alcohol withdrawal protocol, gabapentin taper, as needed IV Ativan for active withdrawal (4) Alcoholic hepatitis: Plan: Tbili 2.4, AST 400, ALT 212 similar to outpatient labs from February Following with [facility] - continue to recommend strict etoh cessation, avoid nsaids, tylenol < 2 gm Repeat liver panel in AM, consider GI consult if worsening (5) High anion gap metabolic acidosis: Plan: AG 25 in setting of acute etoh intoxication, ketones in urine Expect improvement with cessation, IV fluids Mentation intact, not altered Monitor with BMP (6) CIARA (acute kidney injury): Plan: Cr 2.5 today, baseline Cr ~ 0.8 Appears clinically dry, expect improvement with IV fluid resuscitation Repeat BMP in AM DVT Ppx: SCDs Code status: FULL PCP: Anni Dispo: Admitted to PCU Patient seen in collaboration with Dr. Stanford. Please see addendum. I spent a total of 75 minutes coordinating, documenting, and providing care for this patient excluding time spent in the performance of separately billed services. History of Present Illness Chief Complaint: Hip pain Primary Care Provider: Mark Hutton This is a 38-year-old male with PMH of alcohol use disorder, hypertension, hist ory of alcoholic hepatitis and thrombocytopenia who presents with left hip pain. Had a fall back [place] and ever since then has had pain around left hip extending towards spine and down his knee. Also can be tender in left lower quadrant. Pain is exacerbated with movement and relieved with rest. Denies any paresthesias or pain in lower extremities. Has been using a walking stick to keep his balance. States he lost his balance yesterday and fell forward, landing on his hands. Denies any loss of consciousness or head trauma. Was at an appointment with orthopedics provider Dr. Mckeon, who sent over patient to ED for further evaluation given diaphoretic and ill appearance with concern for infection. Upon arrival, patient found to be tachycardic with ethyl alcohol level of 229.0. Has a history of alcohol use disorder and endorses drinking upwards of 750 mL vodka 3-4 nights per week. Last drink was last evening around 8 PM. Does endorse withdrawal symptoms occasionally including sweating, dizziness, nausea and shakiness. Denies any history of seizures and withdrawal setting. No hip pain at rest. No fever, chills, headache, lightheadedness. Does not feel confused right now. No chest pain, palpitations, shortness of breath, dysuria, diarrhea or constipation. Allergies Allergy/AdvReac Type Severity Reaction Status Date / Time No Known Allergies Allergy Unverified 02/26/24 13:56 Home Medications Medication Instructions Recorded Confirmed Type L.acidop,casei,lactis,rham-B.lact,diane 1 cap PO DAILY #30 caps 02/09/24 05/09/24 Rx 625 mg (10 billion cell) capsule (Advanced Probiotic) chlorhexidine gluconate 0.12 % 15 ml MT Q6 PRN #0 mL 02/09/24 05/09/24 Rx mouthwash folic acid 1 mg tablet 1 mg PO DAILY #30 tabs 02/09/24 05/09/24 Rx magnesium chloride 64 mg 64 mg PO BID #60 tabs 02/09/24 05/09/24 Rx (magnesium chloride) tablet,delayed release (Mag 64) metoprolol tartrate 25 mg tablet 25 mg PO BID #60 tabs 02/09/24 05/09/24 Rx potassium chloride 20 mEq 20 meq PO BID #7 tabs 02/09/24 05/09/24 Rx tablet,extended release(part/cryst) thiamine HCl (vitamin B1) 100 mg 100 mg PO DAILY #30 tabs 02/09/24 05/09/24 Rx tablet Past Med/Surg History Problem List (Updated 05/09/24 @ 16:24 by Amarilys Gupta PA-C) High anion gap metabolic acidosis CIARA (acute kidney injury) Lumbar radiculopathy (Acute) Hip pain, left (Acute) Back pain Alcoholic hepatitis Alcoholic intoxication (Acute) Medical History Alcoholism Surgical History History of incision and drainage (02/07/24) Right Cheek Drainage of Hematoma(Right) - Aj Chris, SHIRLEY No pertinent past surgical history Family History Other No pertinent family history Social History Smoking Status: Never smoker Hx Alcohol Use: Yes Alcohol type: hard liquor Alcohol type Comment: 750 ml 3-4 evenings / week Hx Substance Use: No Preferred Language: Persian Communication Ability: Effective Hearing Ability: Normal Saxophone Teacher Required: No Beliefs That Will Affect Care: None marital status: Single Current Living Situation: Alone Current Living Situation Comment: Lives alone in apartment in [place], [place]. Family resides in [place] current occupational status: employed current occupation: [employer] Feels Safe at Home: Yes Assistive Devices: None Review of Systems Review of Systems: At least ten systems reviewed and negative except as noted in the HPI. Physical Exam Physical Exam: Please see Dr. Stanford's addendum for physical exam. Results & Data Results & Data Vital Signs (Past 12 Hours) Vital Signs Temp Pulse Pulse Resp BP BP Pulse Ox 05/09/24 14:12 98 H 16 134/72 97 05/09/24 12:11 92 H 05/09/24 11:18 36.9 C 95 H 18 151/88 H 96 O2 Del Method 05/09/24 14:12 Room Air 05/09/24 12:11 05/09/24 11:18 Room Air Laboratory Results Short CBC 05/09/24 Range/Units 11:55 WBC 10.67 (4.8-10.8) K/ul Hgb 15.5 (14.0-18.0) g/dl Hct 46.1 (42.0-52.0) % Plt Count 143 (130-400) K/uL BMP 05/09/24 11:55 Sodium 140 Potassium 3.8 Chloride 94 L Carbon Dioxide 21 BUN 20 Creatinine 2.51 H Glucose 90 Calcium 9.7 Liver Function 05/09/24 Range/Units 11:55 Total Bilirubin 2.4 H (0.2-1.0) mg/dl AST 400 H (13-39) U/L ALT 212 H (7-52) U/L Alkaline Phosphatase 217 H (34-104) U/L Albumin 4.8 (3.4-5.0) gm/dl Urine 05/09/24 Range/Units 12:00 Urine Color Dark Yellow Urine Appearance Turbid A (Clear) Urine pH 6.0 (4.5-7.5) Ur Specific [employer] 1.015 (1.000-1.030) Urine Protein 3+ H (Negative) Urine Glucose (UA) Trace H (Negative) Diagnostic Findings Abdomen/Pelvis CT 05/09/24 13:38 CT abd pelvis wo con CLINICAL HISTORY: low back, left flank/LLQ pain, CIARA TECHNIQUE: Helical axial images of the abdomen and pelvis were obtained. Automated dose lowering techniques and/or adjustment according to patient size were utilized for this exam. This exam was performed without intravenous contrast. CT DOSE: 1390.12 mGy.cm COMPARISON: Comparison is made to CT abdomen pelvis 02/03/2024 FINDINGS: Lower chest: No acute abnormality. Liver: Hepatic steatosis is noted. Gallbladder and biliary tree: Vicarious excretion of contrast is seen in the ga llbladder. No intra- or extrahepatic biliary ductal dilation. Pancreas: Unremarkable, no focal lesions. Spleen: Splenule is incidentally noted. Adrenals: Unremarkable. Kidneys and ureters: Nonobstructive nephrolithiasis is seen. Perinephric stranding is seen. Bladder: Unremarkable. Reproductive organs: Unremarkable. Bowel: Thickening of the wall of the ascending colon. Lymph nodes Retroperitoneal: Unremarkable. Pelvic: Unremarkable. Mesenteric: Unremarkable. Peritoneum: Normal. Vessels: Unremarkable. Abdominal wall: Unremarkable. Bones: Unremarkable. IMPRESSION: 1. No evidence of hydronephrosis, obstructive stone, or diverticulitis to explain left flank pain. 2. There is thickening of the ascending colonic wall, similar to prior exam, consistent with a nonspecific colitis. 3. Hepatic steatosis. ACT 112: Negative or not required by law. Electronically signed by: Al Covarrubias M.D. 05/09/2024 2:27 PM Code Status & VTE Plan VTE Prophylaxis Plan VTE Prophylaxis will be ordered: Yes Supervising Physician Co-Signing Physician Notes 38 yo M w/ PMH of alcohol use disorder, HTN, alcoholic hepatitis, thrombocytopenia was sent from orthopedic office (he was visiting there for left hip pain) after he was noted not be ill/diaphoretic and pale. There was concern of spinal infection. Pt has alcohol use disorder, drink 1/5th of vodka 3-4 nights a week. He reports left hip pain exacerbated w/ movement and relieved w/ rest. He denies fever, incontinence of urine/stool or ble paresthesias. SLRT was positive on exam of LLE. No obvious hip injury was noted, nor was swelling/erythema in the area. Labs reviewed. CTAP w/ non specific colitis. CIARA noted w/ Cr of 2.51 Active problems: Alc intoxication/risk of withdrawal: awss, folic acid, thiamine, gabapentin taper, prn ativan. No pain or burn while passing urine, f/u urine cx. monitor off antibiotic. Lumbar radiculopathy - LLE slrt +ve. MR Clau spine. also has lt hip tender, get ct hip and vitamin d level. Pain Mx. PT/OT. Alc hepatitis - f/u lft. if uptrending consider gi. limit tylenol to <2g/day. Acute kideny injury: ivf, labs in AM. On exam: GENERAL: Alert and oriented x3. NAD, on RA. HEENT: No pallor, no icterus. Pupils equal, round and reactive to light. Oral mucosa moist. NECK: No JVD, no neck masses. HEART: S1 and S2 heard. Regular rate and rhythm. No murmur, no gallop. RESPIRATORY SYSTEM: Normal AP diameter. No accessory muscle use. No wheezing, no crackles. ABDOMEN: Soft, bowel sounds present, nontender, no distention. CENTRAL NERVOUS SYSTEM: No facial droop. Speech is clear. Obeys simple commands. Moves extremities. EXTREMITIES: LLE slrt +ve, left hip tenderness/decreased rom. no ble edema noted. I have seen and examined the patient and have discussed the case with the provider above. I agree with the assessment and plan as stated. (3) Alcoholic intoxication Complication of substance-induced condition: with unspecified complication Qualified Code(s): F10.929 - Alcohol use, unspecified with intoxication, unspecified (4) Alcoholic hepatitis Ascites presence: without ascites Qualified Code(s): K70.10 - Alcoholic hepatitis without ascites
[2024-05-09] MEDS: PANTOprazole 40 MG in SYRINGE 0 ML IV ONE (16:04)
[2024-05-09] MEDS: GABAPENTIN 600 MG TAB PO ONE (16:38)
--- NOTE | 2024-05-09 17:53 | CT Scan Report ---
CT hip LT wo con CLINICAL HISTORY: L hip pain TECHNIQUE: Multidetector row helical CT of the left hip was performed without intravenous contrast. C oronal and sagittal reformations were obtained. Automated dose lowering techniques and/or adjustment according to patient size were utilized for this examination. CT DOSE: 555.86 mGy.cm Comparison: Comparison is made to CT abdomen pelvis 05/09/2024 FINDINGS: The osseous structures are without fracture or dislocation. The joint spaces are maintained. No joint effusion is seen. The soft tissues are unremarkable. IMPRESSION: No evidence of acute fracture or dislocation. ACT 112: Negative or not required by law. Electronically signed by: Al Covarrubias M.D. 05/09/2024 5:51 PM
[2024-05-09] MEDS: LORazepam 1 MG in SYRINGE 0.5 ML IV PRN (18:32)
[2024-05-09] MEDS: LORazepam 1 MG/1 ML SYR ED Inj Use ONE (18:34)
--- NOTE | 2024-05-09 19:21 | Magnetic Resonance Report ---
MR lumbar spine wo con CLINICAL HISTORY: L hip and lower back pain TECHNIQUE: Multiplanar sequences through the lumbar spine were obtained, without intravenous contrast . Comparison: Comparison is made to CT abdomen pelvis 05/09/2024 FINDINGS: The alignment is anatomical. L1-L2: No significant abnormality. L2-L3: No significant abnormality. L3-L4: Broad-based posterior disc bulge is seen, left greater than right, with mild left neuroforamin al stenosis. L4-L5: Broad-based posterior disc bulge is seen with moderate left neuroforaminal stenosis. L5-S1: No significant abnormality. The spinal ligaments are intact, without evidence of disruption or abnormal signal intensity. The spi nal cord is normal in signal intensity and there is no evidence of cord contusion. There is no eviden ce of an extradural, intradural, extramedullary or intramedullary lesion. Visualized soft tissues are normal. IMPRESSION: Multilevel degenerative changes are seen with up to moderate left neural foraminal stenosis. No signi ficant canal or right neural foraminal stenosis is seen. ACT 112: Negative or not required by law. Electronically signed by: Al Covarrubias M.D. 05/09/2024 7:18 PM
[2024-05-09] MEDS ORDERED: ACETAMINOPHEN 325 MG TAB PO PRN (19:23)
[2024-05-09] MEDS ORDERED: POLYETHYLENE (MIRALAX) 17 GM PACK PO PRN (19:23)
[2024-05-09] MEDS ORDERED: ONDANSETRON INJ 2 MG/ML 2 ML VIAL IV PRN (19:23)
[2024-05-09] MEDS ORDERED: ACETAMINOPHEN 500 MG TAB PO PRN ×2 (19:44→20:59)
[2024-05-09] MEDS: oxyCODONE HCL IR 5 MG TAB (IMMEDIATE RELEASE) PO PRN (20:17)
[2024-05-09] MEDS: MAGNESIUM CHLORIDE W/CALCIUM 64MG DELAYED REL TAB PO SCH (20:18)
[2024-05-09] MEDS: METOPROLOL TARTRATE 25 MG TAB PO SCH (20:19)
[2024-05-09] MEDS: SODIUM CHLORIDE 0.9% 1,000 ML IV SCH (20:20)
[2024-05-09] MEDS: GABAPENTIN 600 MG TAB PO SCH (21:38)
[2024-05-09] MEDS ORDERED: MELATONIN 3 MG TAB PO PRN (21:55)
[2024-05-09] MEDS: MELATONIN 3 MG TAB PO PRN (22:25)
[2024-05-10] MEDS: THIAMINE HCL 250 MG in SODIUM CHLORIDE 0.9% 50 ML IV SCH (08:11)
[2024-05-10] MEDS: cefTRIAXone SODIUM 2,000 MG/50 ML BAG IV SCH (08:12)
[2024-05-10 08:14] LABS: Albumin Globulin Ratio 1.4 (0.9-2); Albumin Level 3.8 gm/dl (3.4-5.0); BUN Creatinine Ratio 14.2 (10-20); Bilirubin,Total 2.7 mg/dl (0.2-1.0); Calcium 8.9 mg/dl (8.6-10.3); Creatinine Clr Calc Pharmacy 86.8 ml/min; Est GFR (African American) 76.3 ml/min; Est GFR (Non-African American) 65.8 ml/min; Globulin 2.7 gm/dl (2.5-4.0); Potassium 3.2 mmol/L (3.5-5.1); Total Protein 6.5 gm/dl (6.0-8.3)
[2024-05-10 08:28] LABS: Hematocrit (blood only) 36.1 % (42.0-52.0); Hemoglobin 12.5 g/dl (14.0-18.0); Mean Corpuscular Hemoglobin 30.9 pg (25.0-34.0); Mean Corpuscular Hgb Conc 34.6 g/dL (32.0-36.0); Mean Corpuscular Volume 89.4 fL (80.0-100.0); Platelet Count 82 K/uL (130-400); RDW Coefficient of Variation 13.2 % (11.5-14.5); RDW Standard Deviation 43.5 fL (36.4-46.3); Red Blood Count 4.04 M/uL (4.70-6.10); White Blood Count 8.82 K/ul (4.8-10.8)
[2024-05-10] MEDS: predniSONE 20 MG TAB PO SCH (09:54)
[2024-05-10] MEDS: diazePAM 5 MG TABLET PO SCH (09:56)
--- NOTE | 2024-05-10 12:45 | Hospitalist Progress Note ---
Date of Service May 10, 2024 Assessment & Plan (1) Hip pain, left: (2) Lumbar radiculopathy: Plan: This is a 38-year-old male with PMH of alcohol use disorder, hypertension, history of alcoholic hepatitis and thrombocytopenia who presents with left hip pain radiating to the knee Sent over from [facility] ortho office for diaphoresis and ill appearance in setting of L hip pain for further work up Presentation consistent with EToh intoxiciation Lumbar MRI shows multilevel degenerative changes with moderate left-sided neural foraminal stenosis. Broad-based posterior disc bulge at L3-L4 and L4-L5 Will start him on steroid with prednisone 40 mg once a day, muscle relaxant with Zanaflex. If pain is not controlled with conservative management; will need referral to orthospine. (3) Alcoholic intoxication: Plan: Found to be tachycardic with heart rate of 95, ethyl alcohol level 229.0 Banana bag, p.o. thiamine and folic acid tomorrow, continue IV fluids, encourage p.o. intake Alcohol withdrawal protocol, gabapentin taper, as needed IV Ativan for active withdrawal Started on a scheduled Valium (4) Alcoholic hepatitis: Plan: Tbili 2.4, AST 400, ALT 212 on admission Following with [facility] - continue to recommend strict etoh cessation, avoid nsaids, tylenol < 2 gm Repeat liver panel suggest improvement in liver enzymes Continue to monitor (5) High anion gap metabolic acidosis: Plan: AG 25 in setting of acute etoh intoxication, ketones in urine improved with iv fluids (6) CIARA (acute kidney injury): Plan: Cr 2.5 today, baseline Cr ~ 0.8 improvement with iv hydration DVT Ppx: SCDs Code status: FULL PCP: Anni Dispo: Admitted to PCU Time spent evaluating patient, direct bedside care, chart review, placing orders, interpretation of diagnostic studies, discussion with consultants, patient, and family members, as well as other required patient management activities is 50-minutes Please note the above document was generated using voice recognition software. It may contain grammatical, syntax or spelling errors. Any formal questions or concerns about the content, text or information contained within the body of this dictation should be directly addressed to the provider for clarification Admission and Anticipated Discharge Date Admission Date: May 09, 2024 Subjective Patient seen and examined at bedside He is comfortably sitting up on the bed; not in distress. He reports radiating pain starting from the buttocks up to the knees No significant events overnight No signs or symptoms of withdrawal at this time Review of Systems Review of Systems: All systems reviewed & are unremarkable except as noted in Subjective Physical Exam Physical Exam: Constitutional: WD/WN, vitals as above, NAD, sitting up in bed, pleasant, conversing easily Respiratory: normal respiratory effort, lungs clear to auscultation, no wheeze, rales, rhonchi. Normal insp/exp effort, no accessory muscle use Cardiovascular: RRR, no murmur, no edema Vessels: no JVD or carotid bruit Chest: normal inspection of chest Abdomen: normal bowel sounds, soft, nontender, no hepatosplenomegaly Musculoskeletal: SLRT on left 45 degrees. Skin: no rashes, warm and dry normal turgor Neurologic: PERRL, EOMI, accommodation nl, no face palsy, no dysarthria CN's II- XI intact bilaterally and moves all extremities Psychiatric: A+Ox3, euthymic affect Results & Data Results & Data Vital Signs (Past 12 Hours) Vital Signs Temp Pulse Pulse Resp BP Pulse Ox O2 Del Method 05/10/24 11:53 37.1 C 97 H 17 169/113 H 94 Room Air 05/10/24 10:26 105 H 05/10/24 08:00 36.8 C 113 H 18 163/102 H 92 Room Air 05/10/24 02:35 36.7 C 19 165/93 H 94 Room Air (4) Alcoholic hepatitis Ascites presence: without ascites Qualified Code(s): K70.10 - Alcoholic hepatitis without ascites
[2024-05-10] MEDS: POTASSIUM CHLORIDE PWD 20 MEQ PACK PO SCH (12:51)
[2024-05-10] MEDS: tiZANidine HCL 4 MG TABLET PO SCH (13:51)
[2024-05-10] MEDS: CHOLECALCIFEROL 125 MCG (5,000 UNITS) TAB PO SCH (13:51)
[2024-05-10] MEDS: GABAPENTIN 600 MG TAB PO SCH (14:15)
[2024-05-11 07:31] LABS: Basophils # (auto) 0.02 K/uL (0.00-0.20); Basophils % (auto) 0.3 %; Eosinophils # (auto) 0.04 K/uL (0.00-0.50); Eosinophils % (auto) 0.5 %; Hematocrit (blood only) 41.1 % (42.0-52.0); Hemoglobin 13.8 g/dl (14.0-18.0); Immature Granulocytes # (auto) 0.02 K/uL (0.01-0.20); Immature Granulocytes % (auto) 0.3 %; Lymphocytes # (auto) 1.57 K/uL (1.20-3.40); Lymphocytes % (auto) 20.6 %; Mean Corpuscular Hemoglobin 30.9 pg (25.0-34.0); Mean Corpuscular Hgb Conc 33.6 g/dL (32.0-36.0); Mean Corpuscular Volume 91.9 fL (80.0-100.0); Mean Platelet Volume 10.9 fL (9.4-12.4); Monocytes # (auto) 0.45 K/uL (0.11-0.59); Monocytes % (auto) 5.9 %; Neutrophils # (auto) 5.52 K/uL (1.40-6.50); Neutrophils % (auto) 72.4 %; Platelet Count 72 K/uL (130-400); RDW Coefficient of Variation 13.1 % (11.5-14.5); RDW Standard Deviation 44.1 fL (36.4-46.3); Red Blood Count 4.47 M/uL (4.70-6.10); White Blood Count 7.62 K/ul (4.8-10.8)
[2024-05-11 07:44] LABS: Creatinine Clr Calc Pharmacy 147.9 ml/min; Est GFR (African American) 130.9 ml/min; Est GFR (Non-African American) 112.9 ml/min
[2024-05-11 08:29] LABS: BUN Creatinine Ratio 17.9 (10-20); Calcium 9.9 mg/dl (8.6-10.3); Potassium 3.6 mmol/L (3.5-5.1)
--- NOTE | 2024-05-11 14:01 | Discharge Summary ---
Date of Service May 11, 2024 Admission HPI Per Admitting Provider This is a 38-year-old male with PMH of alcohol use disorder, hypertension, history of alcoholic hepatitis and thrombocytopenia who presents with left hip pain. Had a [place] back [place] and ever since then has had pain around left hip extending towards spine and down his knee. Also can be tender in left lower quadrant. Pain is exacerbated with movement and relieved with rest. Denies any paresthesias or pain in lower extremities. Has been using a walking stick to keep his balance. States he lost his balance yesterday and fell forward, landing on his hands. Denies any loss of conscio usness or head trauma. Was at an appointment with orthopedics provider Dr. Mckeon, who sent over patient to ED for further evaluation given diaphoretic and ill appearance with concern for infection. Upon arrival, patient found to be tachycardic with ethyl alcohol level of 229.0. Has a history of alcohol use disorder and endorses drinking upwards of 750 mL vodka 3-4 nights per week. Last drink was last evening around 8 PM. Does endorse withdrawal symptoms occasionally including sweating, dizziness, nausea and shakiness. Denies any history of seizures and withdrawal setting. No hip pain at rest. No fever, chills, headache, lightheadedness. Does not feel confused right now. No chest pain, palpitations, shortness of breath, dysuria, diarrhea or constipation. Admission Exam Per Admitting Provider GENERAL: Alert and oriented x3. NAD, on RA. HEENT: No pallor, no icterus. Pupils equal, round and reactive to light. Oral mucosa moist. NECK: No JVD, no neck masses. HEART: S1 and S2 heard. Regular rate and rhythm. No murmur, no gallop. RESPIRATORY SYSTEM: Normal AP diameter. No accessory muscle use. No wheezing, no crackles. ABDOMEN: Soft, bowel sounds present, nontender, no distention. CENTRAL NERVOUS SYSTEM: No facial droop. Speech is clear. Obeys simple commands. Moves extremities. EXTREMITIES: LLE slrt +ve, left hip tenderness/decreased rom. no ble edema noted. Principal Diagnosis Lumbar radiculopathy Alcohol intoxication Alcohol withdrawal Alcohol hepatitis Discharge Exam Constitutional: WD/WN, vitals as above, NAD, sitting up in bed, pleasant, conversing easily Respiratory: normal respiratory effort, lungs clear to auscultation, no wheeze, rales, rhonchi. Normal insp/exp effort, no accessory muscle use Cardiovascular: RRR, no murmur, no edema Vessels: no JVD or carotid bruit Chest: normal inspection of chest Abdomen: normal bowel sounds, soft, nontender, no hepatosplenomegaly Skin: no rashes, warm and dry normal turgor Neurologic: PERRL, EOMI, accommodation nl, no face palsy, no dysarthria CN's II- XI intact bilaterally and moves all extremities Psychiatric: A+Ox3, euthymic affect Discharge Data Allergies Allergy/AdvReac Type Severity Reaction Status Date / Time No Known Allergies Allergy Unverified 02/26/24 13:56 Consultations 05/09/24 15:03 ED Decision to Admit Stat Ordered Studies 05/09/24 13:38 CT abd pelvis wo con Stat 05/09/24 16:29 CT hip LT wo con Routine 05/09/24 16:30 MR lumbar spine wo con Routine Hospital Course (1) Hip pain, left: (2) Lumbar radiculopathy: This is a 38-year-old male with PMH of alcohol use disorder, hypertension, history of alcoholic hepatitis and thrombocytopenia who presents with left hip pain radiating to the knee Sent over from [facility] ortho office for diaphoresis and ill appearance in setting of L hip pain for further work up Presentation consistent with EToh intoxiciation Lumbar MRI shows multilevel degenerative changes with moderate left-sided neural foraminal stenosis. Broad-based posterior disc bulge at L3-L4 and L4-L5 During the hospitalization, patient was treated with oral steroid, muscle relaxant. He reported significant improvement in pain and radicular symptoms. He was walking in the hallways independently without any difficulties. Patient discharged home on oral steroid taper, muscle relaxants and gabapentin. Patient to follow-up with PCP and obtain orthospine referral for lumbar radiculopathy and posterior disc bulge at L3-L4 and L4-L5 (3) Alcoholic intoxication: Found to be tachycardic with heart rate of 95, ethyl alcohol level 229.0 Banana bag, p.o. thiamine and folic acid tomorrow, continue IV fluids, encourage p.o. intake Alcohol withdrawal protocol, gabapentin taper, as needed IV Ativan for active withdrawal No signs or symptoms of withdrawal at the time of discharge (4) Alcoholic hepatitis: Tbili 2.4, AST 400, ALT 212 on admission Following with [facility] - continue to recommend strict etoh cessation, avoid nsaids, tylenol < 2 gm Repeat liver panel suggest improvement in liver enzymes Continue to monitor (5) High anion gap metabolic acidosis: AG 25 in setting of acute etoh intoxication, ketones in urine improved with iv fluids (6) CIARA (acute kidney injury): Cr 2.5 today, baseline Cr ~ 0.8 improvement with iv hydration Please note the above document was generated using voice recognition software. It may contain grammatical, syntax or spelling errors. Any formal questions or concerns about the content, text or information contained within the body of this dictation should be directly addressed to the provider for clarification Total Time Total Time Spent Total Time Spent (In Minutes): 35 Discharge Plan Discharge Items Patient Disposition: Home - Self-Care Reason For Visit: ETOH INTOX, RISK OF WITHDRAWAL, CIARA, HEPATITIS Discharge Diagnosis: Lumbar radiculopathy: Alcoholic hepatitis: Activity: Resume your previous activity Non-emergency contact: Primary Care Provider Call non-emergency contact if: you have any medication questions and your symptoms worsen Follow-up/Referrals: Mark Hutton M.D. [Primary Care Provider] - Diet: Regular Addtl Attending Provider Instructions: You were admitted to the hospital due to back pain. MRI of the lower back showed disc bulge at L3-L4 and L4-L5. You are treated with steroid, muscle relaxant during the hospitalization. You are prescribed following medication: 1) Take prednisone 10mg (steroids) as follows: 40 mg(4 tabs) once a day for 3 days 20 mg (2 tabs) once a day for 3 days 10 mg(1 tab) once a day for 3 days 2) Take Zanaflex as needed 3 times a day for muscle spasms 3) Take gabapentin 100 mg 3 times a day. This helps with neuropathic pain as well as help with alcohol use disorder. The dose can be gradually increased to 300 mg 3 times a day if you tolerate it well. Please discuss with your primary care doctor regarding it. 4) Take vitamin D3 tablets once a day for 30 days. You are found to have low vitamin D level. After 30 days complete, You can take 2000 units once a day wh ich can be obtained over the counter. An appointment with your primary care doctor will be made for you. Please discuss regarding referral for orthospine to discuss the disc bulge Seen in the MRI. Pending Studies at Discharge: No Stand-Alone Forms: My [facility], Smoking Cessation Medications and DC Order Prescriptions: New tizanidine 4 mg Tablet 2 mg PO TID PRN (Reason: muscle spasm) 7 Days Qty: 21 0RF gabapentin 100 mg capsule 100 mg PO Q8H Qty: 90 0RF cholecalciferol (vitamin D3) 125 mcg (5,000 unit) Tablet 125 mcg PO QAM Qty: 30 0RF prednisone 10 mg tablet See Taper PO DAILY Qty: 21 0RF Taper: Taper, Blank 40 mg DAILY for 3 Days 20 mg DAILY for 3 Days 10 mg DAILY for 3 Days Continued metoprolol tartrate 25 mg Tablet 25 mg PO BID Qty: 60 0RF magnesium chloride [Mag 64] 64 mg Tablet,Delayed Release (Dr/Ec) 64 mg PO BID Qty: 60 0RF Discharge Orders: Discharge Order (Routine); Ordered 05/11/24 Ordered By: Bib Amanda Admission Data Admit Date/Time: 05/09/24 15:09 Attending Provider: Bib Amanda Admit Provider: Nelson Stanford Primary Care Provider: Mark Hutton Other Providers: Nelson Stanford Other Interventions: Discharge Summary Assessment (RN) Last Done: 05/11/24 09:50
[2024-05-11] MEDS ORDERED: GABAPENTIN 600 MG TAB PO SCH (18:30)
[2024-05-13] MEDS ORDERED: GABAPENTIN 600 MG TAB PO SCH (06:30)
== END 2024-05-11 10:12 | disposition home or self-care (01) ==
LOC: ED 11:12 → EDINP 15:09 → SUATTDRO 15:09 → INTOOBSV 15:09 → 1E 19:17 → 2E 22:32